=== PATIENT | female | born 1960 | race Caucasian/White ===

== ENCOUNTER 2018-02-21 04:38 | Inpatient (IN) | payer BC ==
[2018-02-21] MEDS ORDERED: Sodium Chloride 0.9% 1,000 ML IV ONE (05:14)
[2018-02-21] MEDS ORDERED: Ondansetron 4 MG Tab.DIS PO ONE (05:14)
[2018-02-21] MEDS ORDERED: Albuterol/Ipratropium 3.0-0.5 MG/3 ML Neb Soln NEB ONE (05:31)
[2018-02-21 05:50] LABS: CHLORIDE,CL 101 mmol/L (101-111); SODIUM,NA 136 mmol/L (135-145)
[2018-02-21] MEDS ORDERED: Iopamidol 755 Mg/ML 100 ML Bottle IVPUSH ONE (06:13)
--- NOTE | 2018-02-21 06:18 | EDM.PDOC ---
<Sparkle Vieira - Last Filed: 02/21/18 06:30> ED HPI GENERAL MEDICAL PROBLEM - General Chief Complaint: Abdominal Pain Stated Complaint: SOB AND VOMITING [id number] Time Seen by Provider: 02/21/18 05:10 Source of Information: Reports: Patient History Limitations: Reports: No Limitations - History of Present Illness INITIAL COMMENTS - FREE TEXT/NARRATIVE: ED with c/o vomiting past 2 days, unable to keep anything down, chills, feeling SOB tonight. brief few second anterior chest pain last yari. Also noted left knee red. 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 Abdomen Pain Score (Numeric/FACES): 8 - Related Data Allergies Allergy/AdvReac Type Severity Reaction Status Date / Time aspirin Allergy Nausea Verified 02/21/18 04:57 Home Meds: Home Meds Lisinopril 10 mg PO DAILY 02/21/18 [History] Vortioxetine Hydrobromide [Trintellix] 20 mg PO DAILY 02/21/18 [History] oxyCODONE HCl/Acetaminophen [Oxycodone-Acetaminophen 5-325] 1 tab PO ASDIRECTED 02/21/18 [History] rOPINIRole [Requip] 1 mg pe PO DAILY 02/21/18 [History] Past Medical History HEENT History: Reports: Impaired Vision Cardiovascular History: Reports: Hypertension Gastrointestinal History: Reports: GERD Musculoskeletal History: Reports: Back Pain, Chronic, Other (See Below) Other Musculoskeletal History: slipped disc. Hematologic History: Reports: Anemia, Blood Transfusion(s) - Past Surgical History Musculoskeletal Surgical History: Reports: Knee Replacement, Other (See Below) Other Musculoskeletal Surgeries/Procedures:: betsy knee replacement Social & Family History - Family History Cardiac: Reports: [place] Other Cardiac Family History: Father. - Tobacco Use Smoking Status *Q: Never Smoker Second Hand Smoke Exposure: No - Caffeine Use Caffeine Use: Reports: Energy Drinks Other Caffeine Use: 1/ daily - Recreational Drug Use Recreational Drug Use: No ED ROS GENERAL - Review of Systems Review Of Systems: See Below Constitutional: Reports: Chills, Decreased Appetite HEENT: Reports: Glasses Respiratory: Reports: Shortness of Breath, Wheezing, Cough. Denies: Pleuritic Chest Pain Cardiovascular: Reports: Orthopnea Endocrine: Reports: No Symptoms GI/Abdominal: Reports: Abdominal Pain (generalized), Decreased Appetite, Nausea , Vomiting : Reports: No Symptoms Musculoskeletal: Reports: Joint Pain (left knee) Skin: Reports: Erythema (left anterior knee and anterior lower leg) Neurological: Reports: Headache ED EXAM, GI/ABD - Physical Exam Exam: See Below Exam Limited By: No Limitations General Appearance: Alert, Anxious, Mild Distress Eyes: Bilateral: EOMI Ears: Normal External Exam Nose: Normal Inspection Throat/Mouth: Normal Inspection, Normal Lips Head: Atraumatic, Normocephalic Respiratory/Chest: Wheezing (upper, ), Other (tachypnea) Back Exam: Normal Inspection Extremities: Joint Swelling (left knee), Leg Pain, Increased Warmth Neurological: Alert, Oriented, Normal Cognition Psychiatric: Normal Affect, Anxious Skin Exam: Warm, Dry, Intact, No Rash Course - Vital Signs Last Recorded V/S: Last Vital Signs Temp 37.9 C 02/21/18 09:26 Pulse 92 02/21/18 09:26 Resp 20 02/21/18 09:26 BP 124/68 02/21/18 09:26 Pulse Ox 94 L 02/21/18 09:26 - Orders/Labs/Meds Orders: Active Orders 24 hr Category Date Time Status EKG 12 Lead [EKG Documentation Completion] [RC] URGENT Care 02/21/18 05:18 Active RT Aerosol Therapy [RC] ASDIRECTED Care 02/21/18 05:31 Active Venous Doppler Lwr Ext Lt [US] Urgent Exams 02/21/18 08:45 Ordered UA W/MICROSCOPIC [URIN] Stat Lab 02/21/18 05:12 Ordered Vancomycin 2 gm Med 02/21/18 09:31 Ordered Sodium Chloride 0.9% [Normal Saline] 500 ml IV ONETIME Medication Orders Vancomycin HCl 2 gm/ Sodium (Chloride) 500 mls @ 334 mls/hr IV ONETIME ONE Stop: 02/21/18 11:00 Labs: Laboratory Tests 02/21/18 02/21/18 02/21/18 Range/Units 05:24 05:24 05:24 WBC 18.0 H (5.0-10.0) 10^3/uL RBC 3.88 L (4.2-5.4) 10^6/uL Hgb 11.4 L (12.0-16.0) g/dL Hct 35.7 L (37.0-47.0) % MCV 92.0 (80-100) fL MCH 29.4 (27.0-34.0) pg MCHC 31.9 L (33.0-35.0) g/dL Plt Count 262 D (150-450) 10^3/uL Neut % (Auto) 87.6 H (42.2-75.2) % Lymph % (Auto) 6.4 L (20.5-50.1) % [place] % (Auto) 5.9 (2-8) % Eos % (Auto) 0.0 L (1.0-3.0) % Baso % (Auto) 0.1 (0.0-1.0) % D-Dimer, Quantitative 1310 H (0-400) ng/mL Sodium 136 (135-145) mmol/L Potassium 3.6 (3.6-5.0) mmol/L Chloride 101 (101-111) mmol/L Carbon Dioxide 24.0 (21.0-31.0) mmol/L Anion Gap 14.6 BUN 13 (7-18) mg/dL Creatinine 0.9 (0.6-1.3) mg/dL Est Cr Clr Drug Dosing 55.20 mL/min Estimated GFR (MDRD) > 60 BUN/Creatinine Ratio 14.44 Glucose 107 H (74-105) mg/dL Lactic Acid (0.5-2.2) mmol/L Uric Acid 6.2 (2.6-7.2) mg/dL Calcium 8.6 (8.4-10.2) mg/dl Total Bilirubin 0.8 (0.2-1.0) mg/dL AST 22 (10-42) IU/L ALT 21 (10-60) IU/L Alkaline Phosphatase 60 (42-121) IU/L CK-MB (CK-2) (0.4-4.7) ng/mL Troponin I < 0.02 (0.00-0.02) ng/ml B-Natriuretic Peptide 89 (0-100) pg/ml Total Protein 7.1 (6.7-8.2) g/dl Albumin 3.5 (3.2-5.5) g/dl Globulin 3.6 Albumin/Globulin Ratio 0.97 Amylase 7 L (28-100) U/L Lipase 12 L (22-51) U/L Urine Color (YELLOW) Urine Appearance (CLEAR) Urine pH (5.0-9.0) Ur Specific [place] (1.005-1.030) Urine Protein (NEGATIVE) Urine Glucose (UA) (NEGATIVE) Urine Ketones (NEGATIVE) Urine Occult Blood (NEGATIVE) Urine Nitrite (NEGATIVE) Urine Bilirubin (NEGATIVE) Urine Urobilinogen (0.2-1.0) mg/dL Ur Leukocyte Esterase (NEGATIVE) Urine RBC /HPF Urine WBC (0-5/HPF) /HPF Ur Epithelial Cells /HPF Urine Bacteria (0-FEW/HPF) /HPF 02/21/18 02/21/18 02/21/18 Range/Units 05:24 05:24 07:51 WBC (5.0-10.0) 10^3/uL RBC (4.2-5.4) 10^6/uL Hgb (12.0-16.0) g/dL Hct (37.0-47.0) % MCV (80-100) fL MCH (27.0-34.0) pg MCHC (33.0-35.0) g/dL Plt Count (150-450) 10^3/uL Neut % (Auto) (42.2-75.2) % Lymph % (Auto) (20.5-50.1) % [place] % (Auto) (2-8) % Eos % (Auto) (1.0-3.0) % Baso % (Auto) (0.0-1.0) % D-Dimer, Quantitative (0-400) ng/mL Sodium (135-145) mmol/L Potassium (3.6-5.0) mmol/L Chloride (101-111) mmol/L Carbon Dioxide (21.0-31.0) mmol/L Anion Gap BUN (7-18) mg/dL Creatinine (0.6-1.3) mg/dL Est Cr Clr Drug Dosing mL/min Estimated GFR (MDRD) BUN/Creatinine Ratio Glucose (74-105) mg/dL Lactic Acid 0.9 (0.5-2.2) mmol/L Uric Acid (2.6-7.2) mg/dL Calcium (8.4-10.2) mg/dl Total Bilirubin (0.2-1.0) mg/dL AST (10-42) IU/L ALT (10-60) IU/L Alkaline Phosphatase (42-121) IU/L CK-MB (CK-2) 1.00 (0.4-4.7) ng/mL Troponin I (0.00-0.02) ng/ml B-Natriuretic Peptide (0-100) pg/ml Total Protein (6.7-8.2) g/dl Albumin (3.2-5.5) g/dl Globulin Albumin/Globulin Ratio Amylase (28-100) U/L Lipase (22-51) U/L Urine Color Dark yellow (YELLOW) Urine Appearance Slightly cloudy (CLEAR) Urine pH 5.5 (5.0-9.0) Ur Specific [place] 1.015 (1.005-1.030) Urine Protein 100 H (NEGATIVE) Urine Glucose (UA) Negative (NEGATIVE) Urine Ketones 40 H (NEGATIVE) Urine Occult Blood Moderate H (NEGATIVE) Urine Nitrite Negative (NEGATIVE) Urine Bilirubin Small H (NEGATIVE) Urine Urobilinogen 1.0 (0.2-1.0) mg/dL Ur Leukocyte Esterase Negative (NEGATIVE) Urine RBC 0-5 /HPF Urine WBC 0-5 (0-5/HPF) /HPF Ur Epithelial Cells Moderate H /HPF Urine Bacteria Many H (0-FEW/HPF) /HPF Meds: Medications Generic Name Dose Route Start Last Admin Trade Name Freq PRN Reason Stop Dose Admin Vancomycin HCl 2 gm/ Sodium 500 mls @ 334 mls/hr 02/21/18 09:31 Chloride IV 02/21/18 11:00 ONETIME ONE Discontinued Medications Generic Name Dose Route Start Last Admin Trade Name Freq PRN Reason Stop Dose Admin Albuterol/Ipratropium 3 ml 02/21/18 05:31 02/21/18 05:38 Duoneb 3.0-0.5 Mg/3 Ml NEB 02/21/18 05:32 3 ml ONETIME ONE Administration Sodium Chloride 1,000 mls @ 999 mls/hr 02/21/18 05:14 02/21/18 05:28 Normal Saline IV 02/21/18 06:14 999 mls/hr .BOLUS ONE Administration Iopamidol 100 ml 02/21/18 06:13 02/21/18 07:59 [id number] (76%) IVPUSH 02/21/18 06:14 83 ml ONETIME ONE Administration Morphine Sulfate 4 mg 02/21/18 06:23 02/21/18 06:28 Morphine IVPUSH 02/21/18 06:24 4 mg ONETIME ONE Administration Ondansetron HCl 4 mg 02/21/18 05:14 02/21/18 05:30 Zofran Odt PO 02/21/18 05:15 4 mg ONETIME ONE Administration Pantoprazole Sodium 80 mg 02/21/18 06:24 02/21/18 06:36 Protonix Iv IVPUSH 02/21/18 06:25 80 mg .BOLUS ONE Administration Departure - Departure Disposition: Admitted As Inpatient 67 Clinical Impression: Cellulitis of left lower extremity - Discharge Information Care Plan Goals: Discussed the patient's history, examination, lab, CT and ultrasound results with Dr. Ambrocio. Dr. Ambrocio accepted the patient for continued evaluation and further management as an inpatient at [facility]. - My Orders Last 24 Hours: My Active Orders 02/21/18 08:45 Venous Doppler Lwr Ext Lt [US] Urgent 02/21/18 09:31 Vancomycin 2 gm Sodium Chloride 0.9% [Normal Saline] 500 ml IV ONETIME - Assessment/Plan Last 24 Hours: My Active Orders 02/21/18 08:45 Venous Doppler Lwr Ext Lt [US] Urgent 02/21/18 09:31 Vancomycin 2 gm Sodium Chloride 0.9% [Normal Saline] 500 ml IV ONETIME <Bairon Morelos - Last Filed: 02/21/18 09:33> Departure - Departure Time of Disposition: 09:31 Condition: Fair
[2018-02-21] MEDS ORDERED: Morphine 10 MG/ML Syringe IVPUSH ONE (06:23)
[2018-02-21] MEDS ORDERED: Pantoprazole 40 MG Vial IVPUSH ONE (06:24)
[2018-02-21] MEDS ORDERED: Vancomycin 2 GM in Sodium Chloride 0.9% 500 ML IV ONE (09:31)
--- NOTE | 2018-02-21 09:35 | US ---
Clinical history: 57-year-old 300 pound female with swollen, red, left leg (superficial varicosities) . Rule out DVT. Interpretation: Superficial calf varicosities confirmed. No sign of intraluminal echogenic thrombus and normal compressibility deep veins of the left groin, t high, knee and calf. Normal augmentation vascular waveform popliteal vein behind the left knee and pr oximally in the femoral veins of the left thigh and groin. No Henry's cyst identified in the popliteal fossa behind the left knee. CONCLUSION: No DVT left lower extremity.
[2018-02-21] MEDS ORDERED: METHOCARBAMOL 500 MG PO PRN (11:57)
[2018-02-21] MEDS ORDERED: Acetaminophen/oxyCODONE 325-5 MG Tab PO PRN (11:57)
[2018-02-21] MEDS ORDERED: Ondansetron 4 MG/2 ML SDV IVPUSH PRN (12:05)
[2018-02-21] MEDS ORDERED: Morphine 2 MG/ML Syringe IVPUSH PRN (12:05)
[2018-02-21] MEDS ORDERED: Zolpidem 5 MG Tab PO PRN (12:05)
--- NOTE | 2018-02-21 12:19 | PCM.HP ---
H&P History of Present Illness - General Date of Service: 02/21/18 Admit Problem/Dx: Admission Diagnosis/Problem Admission Diagnosis/Problem Cellulitis Source of Information: Patient - History of Present Illness Initial Comments - Free Text/Narative: 57-year-old lady who presented with the nausea, vomiting. Noted to have left lower extremity redness. The nausea and vomiting symptoms started about 34 days prior to admission. Was unable to eat. Has been getting weaker and tired. Has no associated abdominal pain, no diarrhea. Abdomen Pain Score (Numeric/FACES): 8 - Related Data Allergies/Adverse Reactions: Allergies Allergy/AdvReac Type Severity Reaction Status Date / Time aspirin Allergy Mild Nausea Verified 02/21/18 11:22 Home Medications: Home Meds Lisinopril 10 mg PO DAILY 02/21/18 [History] Methocarbamol [Robaxin] 500 mg PO Q4H PRN 02/21/18 [History] Vortioxetine Hydrobromide [Trintellix] 20 mg PO DAILY 02/21/18 [History] cycloSPORINE [Restasis] 1 each OP BID 02/21/18 [History] oxyCODONE HCl/Acetaminophen [Oxycodone-Acetaminophen 5-325] 1 tab PO BID PRN [History] rOPINIRole [Requip] 1 mg PO BEDTIME 02/21/18 [History] Past Medical History HEENT History: Reports: Impaired Vision Cardiovascular History: Reports: Hypertension Gastrointestinal History: Reports: GERD Musculoskeletal History: Reports: Back Pain, Chronic, Other (See Below) Other Musculoskeletal History: slipped disc. Endocrine/Metabolic History: Reports: Obesity/BMI 30+ Hematologic History: Reports: Anemia, Blood Transfusion(s), Other (See Below) Other Hematologic History: with knee surgeries - Infectious Disease History Infectious Disease History: Reports: None - Past Surgical History HEENT Surgical History: Reports: None Cardiovascular Surgical History: Reports: None GI Surgical History: Reports: None Endocrine Surgical History: Reports: None Musculoskeletal Surgical History: Reports: Knee Replacement, Other (See Below) Other Musculoskeletal Surgeries/Procedures:: betsy knee replacement Social & Family History - Family History Family Medical History: Noncontributory Cardiac: Reports: [place] Other Cardiac Family History: Father. - Tobacco Use Smoking Status *Q: Never Smoker Second Hand Smoke Exposure: Yes - Caffeine Use Caffeine Use: Reports: Coffee Other Caffeine Use: 1/ daily - Recreational Drug Use Recreational Drug Use: No H&P Review of Systems - Review of Systems: Review Of Systems: See Below General: Reports: Malaise, Weakness, Fatigue. Denies: Fever Pulmonary: Denies: Shortness of Breath Cardiovascular: Denies: Chest Pain, Dyspnea on Exertion, Edema Gastrointestinal: Reports: Nausea, Vomiting. Denies: Abdominal Pain Skin: Reports: Other (Left leg redness). Denies: Jaundice Psychiatric: Reports: Depression Exam - Exam Exam: See Below - Vital Signs Vital Signs: Last Vital Signs Temp 37.9 C 02/21/18 09:26 Pulse 92 02/21/18 09:26 Resp 20 02/21/18 09:26 BP 124/68 02/21/18 09:26 Pulse Ox 94 L 02/21/18 09:26 Weight: 140.886 kg - Exam General: Alert, Oriented Neck: Supple Lungs: Clear to Auscultation, Normal Respiratory Effort Cardiovascular: Regular Rate, Regular Rhythm GI/Abdominal Exam: Normal Bowel Sounds, Soft, Non-Tender Extremities: No Pedal Edema Skin: Other (Left lower extremity erythema) Neuro Extensive - Mental Status: Alert, Oriented x3, Normal Mood/Affect Psychiatric: Alert, Normal Affect, Normal Mood - Patient Data Lab Results Last 24 hrs: Laboratory Results - last 24 hr 02/21/18 02/21/18 02/21/18 Range/Units 05:24 05:24 05:24 WBC 18.0 H (5.0-10.0) 10^3/uL RBC 3.88 L (4.2-5.4) 10^6/uL Hgb 11.4 L (12.0-16.0) g/dL Hct 35.7 L (37.0-47.0) % MCV 92.0 (80-100) fL MCH 29.4 (27.0-34.0) pg MCHC 31.9 L (33.0-35.0) g/dL Plt Count 262 D (150-450) 10^3/uL Neut % (Auto) 87.6 H (42.2-75.2) % Lymph % (Auto) 6.4 L (20.5-50.1) % [place] % (Auto) 5.9 (2-8) % Eos % (Auto) 0.0 L (1.0-3.0) % Baso % (Auto) 0.1 (0.0-1.0) % D-Dimer, Quantitative 1310 H (0-400) ng/mL Sodium 136 (135-145) mmol/L Potassium 3.6 (3.6-5.0) mmol/L Chloride 101 (101-111) mmol/L Carbon Dioxide 24.0 (21.0-31.0) mmol/L Anion Gap 14.6 BUN 13 (7-18) mg/dL Creatinine 0.9 (0.6-1.3) mg/dL Est Cr Clr Drug Dosing 55.20 mL/min Estimated GFR (MDRD) > 60 BUN/Creatinine Ratio 14.44 Glucose 107 H (74-105) mg/dL Lactic Acid (0.5-2.2) mmol/L Uric Acid 6.2 (2.6-7.2) mg/dL Calcium 8.6 (8.4-10.2) mg/dl Total Bilirubin 0.8 (0.2-1.0) mg/dL AST 22 (10-42) IU/L ALT 21 (10-60) IU/L Alkaline Phosphatase 60 (42-121) IU/L CK-MB (CK-2) (0.4-4.7) ng/mL Troponin I < 0.02 (0.00-0.02) ng/ml B-Natriuretic Peptide 89 (0-100) pg/ml Total Protein 7.1 (6.7-8.2) g/dl Albumin 3.5 (3.2-5.5) g/dl Globulin 3.6 Albumin/Globulin Ratio 0.97 Amylase 7 L (28-100) U/L Lipase 12 L (22-51) U/L Urine Color (YELLOW) Urine Appearance (CLEAR) Urine pH (5.0-9.0) Ur Specific [place] (1.005-1.030) Urine Protein (NEGATIVE) Urine Glucose (UA) (NEGATIVE) Urine Ketones (NEGATIVE) Urine Occult Blood (NEGATIVE) Urine Nitrite (NEGATIVE) Urine Bilirubin (NEGATIVE) Urine Urobilinogen (0.2-1.0) mg/dL Ur Leukocyte Esterase (NEGATIVE) Urine RBC /HPF Urine WBC (0-5/HPF) /HPF Ur Epithelial Cells /HPF Urine Bacteria (0-FEW/HPF) /HPF 02/21/18 02/21/18 02/21/18 Range/Units 05:24 05:24 07:51 WBC (5.0-10.0) 10^3/uL RBC (4.2-5.4) 10^6/uL Hgb (12.0-16.0) g/dL Hct (37.0-47.0) % MCV (80-100) fL MCH (27.0-34.0) pg MCHC (33.0-35.0) g/dL Plt Count (150-450) 10^3/uL Neut % (Auto) (42.2-75.2) % Lymph % (Auto) (20.5-50.1) % [place] % (Auto) (2-8) % Eos % (Auto) (1.0-3.0) % Baso % (Auto) (0.0-1.0) % D-Dimer, Quantitative (0-400) ng/mL Sodium (135-145) mmol/L Potassium (3.6-5.0) mmol/L Chloride (101-111) mmol/L Carbon Dioxide (21.0-31.0) mmol/L Anion Gap BUN (7-18) mg/dL Creatinine (0.6-1.3) mg/dL Est Cr Clr Drug Dosing mL/min Estimated GFR (MDRD) BUN/Creatinine Ratio Glucose (74-105) mg/dL Lactic Acid 0.9 (0.5-2.2) mmol/L Uric Acid (2.6-7.2) mg/dL Calcium (8.4-10.2) mg/dl Total Bilirubin (0.2-1.0) mg/dL AST (10-42) IU/L ALT (10-60) IU/L Alkaline Phosphatase (42-121) IU/L CK-MB (CK-2) 1.00 (0.4-4.7) ng/mL Troponin I (0.00-0.02) ng/ml B-Natriuretic Peptide (0-100) pg/ml Total Protein (6.7-8.2) g/dl Albumin (3.2-5.5) g/dl Globulin Albumin/Globulin Ratio Amylase (28-100) U/L Lipase (22-51) U/L Urine Color Dark yellow (YELLOW) Urine Appearance Slightly cloudy (CLEAR) Urine pH 5.5 (5.0-9.0) Ur Specific [place] 1.015 (1.005-1.030) Urine Protein 100 H (NEGATIVE) Urine Glucose (UA) Negative (NEGATIVE) Urine Ketones 40 H (NEGATIVE) Urine Occult Blood Moderate H (NEGATIVE) Urine Nitrite Negative (NEGATIVE) Urine Bilirubin Small H (NEGATIVE) Urine Urobilinogen 1.0 (0.2-1.0) mg/dL Ur Leukocyte Esterase Negative (NEGATIVE) Urine RBC 0-5 /HPF Urine WBC 0-5 (0-5/HPF) /HPF Ur Epithelial Cells Moderate H /HPF Urine Bacteria Many H (0-FEW/HPF) /HPF Result Diagrams: 02/21/18 05:24 02/21/18 05:24 Juan M Results Last 24 hrs: Microbiology 02/21/18 05:24 Influenza Type A Antigen Screen - Final Nasal, Right NEGATIVE INFLUENZA A VIRUS AG Influenza Type B Antigen Screen - Final NEGATIVE INFLUENZA B VIRUS AG - Problem List (1) Cellulitis of left lower extremity SNOMED Code(s): 812673858 ICD Code: L03.116 - CELLULITIS OF LEFT LOWER LIMB Status: Acute Current Visit: No Problem List Initiated/Reviewed/Updated: Yes Orders Last 24hrs: Active Orders 24 hr Category Date Time Status Patient Status [ADT] Routine ADT 02/21/18 12:00 Ordered EKG 12 Lead [EKG Documentation Completion] [RC] URGENT Care 02/21/18 05:18 Active Oxygen Therapy [RC] PRN Care 02/21/18 12:00 Ordered Peripheral IV Care [RC] . DIRECTED Care 02/21/18 12:10 Ordered RT Aerosol Therapy [RC] ASDIRECTED Care 02/21/18 05:31 Active Up With Assistance [RC] ASDIRECTED Care 02/21/18 12:00 Ordered VTE/DVT Education [RC] PER UNIT ROUTINE Care 02/21/18 12:00 Ordered Vital Signs [RC] Q4H Care 02/21/18 12:00 Ordered Regular Diet [DIET] Diet 02/21/18 Lunch Ordered BASIC METABOLIC PANEL,BMP [CHEM] AM Lab 02/22/18 05:11 Ordered CBC WITH AUTO DIFF [HEME] AM Lab 02/22/18 05:11 Ordered CULTURE BLOOD [BC] Stat Lab 02/21/18 11:59 Ordered CULTURE BLOOD [BC] Stat Lab 02/21/18 11:59 Ordered UA W/MICROSCOPIC [URIN] Stat Lab 02/21/18 07:51 Ordered VANCOMYCIN TROUGH [CHEM] Timed Lab 02/22/18 09:30 Ordered Acetaminophen [Tylenol] Med 02/21/18 12:05 Ordered 650 mg PO Q4H PRN Acetaminophen/oxyCODONE [Percocet 325-5 MG] Med 02/21/18 11:57 Ordered 1 tab PO Q6H PRN Heparin Sodium Med 02/21/18 14:00 Ordered 5,000 units SUBCUT Q8HR Lisinopril [Prinivil] Med 02/22/18 09:00 Ordered 10 mg PO DAILY Methocarbamol [Robaxin] Med 02/21/18 11:57 Ordered 500 mg PO Q4H PRN Morphine Med 02/21/18 12:05 Ordered 2 mg IVPUSH Q2H PRN Ondansetron [Zofran ODT] Med 02/21/18 12:05 Ordered 4 mg PO Q6H PRN Ondansetron [Zofran] Med 02/21/18 12:05 Ordered 4 mg IVPUSH Q6H PRN Pantoprazole [ProTONIX] Med 02/21/18 17:00 Ordered 40 mg PO BIDAC Piperacillin/Tazobactam [Zosyn] 3.375 gm Med 02/21/18 12:00 Ordered Sodium Chloride 0.9% [Normal Saline] 100 ml IV Q6H Sodium Chloride 0.9% [Saline Flush] Med 02/21/18 12:05 Ordered 10 ml FLUSH ASDIRECTED PRN Vancomycin 1.25 gm Med 02/21/18 18:00 Active Sodium Chloride 0.9% [Normal Saline] 250 ml IV Q8H Vancomycin Pharmacy to Dose [Pharmacy to Dose - Med 02/21/18 12:00 Ordered Vancomycin] 1 dose .XX ASDIRECTED Vortioxetine Hydrobromide [Trintellix] Med 02/22/18 09:00 Ordered 20 mg PO DAILY Zolpidem [Ambien] Med 02/21/18 12:05 Ordered 5 mg PO BEDTIME PRN cycloSPORINE [Restasis] Med 02/21/18 21:00 Ordered 1 each EYEBOTH BID rOPINIRole [Requip] Med 02/21/18 21:00 Ordered 1 mg PO BEDTIME Antiembolic Hose [OM.PC] Per Unit Routine Oth 02/21/18 12:08 Ordered Blood Culture x2 Reflex Set [OM.PC] Stat Oth 02/21/18 11:59 Ordered Peripheral IV Insertion Adult [OM.PC] Routine Oth 02/21/18 12:05 Ordered Resuscitation Status Routine Resus Stat 02/21/18 12:00 Ordered Medication Orders Acetaminophen (Tylenol) 650 mg PO Q4H PRN PRN Reason: Pain (Mild 1-3)/fever Cyclosporine (Restasis) 1 each EYEBOTH BID EYAL Heparin Sodium (Porcine) (Heparin Sodium) 5,000 units SUBCUT Q8HR EYAL Piperacillin Sod/Tazobactam (Sod 3.375 gm/ Sodium Chloride) 100 mls @ 200 mls/ hr IV Q6H EYAL Vancomycin HCl 1.25 gm/ Sodium (Chloride) 250 mls @ 166.667 mls/hr IV Q8H EYAL Lisinopril (Prinivil) 10 mg PO DAILY EYAL Morphine Sulfate (Morphine) 2 mg IVPUSH Q2H PRN PRN Reason: Pain (severe 7-10) Non-Formulary Medication (Methocarbamol [Robaxin]) 500 mg PO Q4H PRN PRN Reason: Pain Non-Formulary Medication (Vortioxetine Hydrobromide [Trintellix]) 20 mg PO DAILY EYAL Ondansetron HCl (Zofran Odt) 4 mg PO Q6H PRN PRN Reason: nausea, able to take PO Ondansetron HCl (Zofran) 4 mg IVPUSH Q6H PRN PRN Reason: Nausea/Vomiting Oxycodone/Acetaminophen (Percocet 325-5 Mg) 1 tab PO Q6H PRN PRN Reason: Pain Pantoprazole Sodium (Protonix) 40 mg PO BIDAC EYAL Ropinirole HCl (Requip) 1 mg PO BEDTIME EYAL Sodium Chloride (Saline Flush) 10 ml FLUSH ASDIRECTED PRN PRN Reason: Keep Vein Open Vancomycin HCl (Pharmacy To Dose - Vancomycin) 1 dose .XX ASDIRECTED EYAL Zolpidem Tartrate (Ambien) 5 mg PO BEDTIME PRN PRN Reason: Sleep Assessment/Plan Comment:: 57-year-old lady who presented with the nausea, vomiting. Noted to have left lower extremity redness. Cellulitis of the left lower extremity Will obtain Blood culture Start treatment empirically with Zosyn and vancomycin Nausea, vomiting Might Relate to infection, possible gastroenteritis Will give IV fluids, antiemetics Chronic pain Use oxycodone by mouth, morphine IV when necessary Hypertension Treat with lisinopril DVT prophylaxis will be with subcutaneous heparin
[2018-02-21] MEDS: Acetaminophen 325 MG Tab PO PRN (13:08)
[2018-02-21] MEDS: Piperacillin/Tazobactam 3.375 GM in Sodium Chloride 0.9% 100 ML IV SCH ×2 (13:40→17:55)
[2018-02-21] MEDS: Heparin Sodium 5,000 Units/ML Vial SUBCUT SCH ×2 (14:21→21:23)
[2018-02-21] MEDS: Pantoprazole 40 MG Tab.CR PO SCH (17:02)
[2018-02-21] MEDS: Ibuprofen 400 MG Tab PO PRN (19:20)
[2018-02-21] MEDS: rOPINIRole 2 MG Tab PO SCH (21:21)
[2018-02-21] MEDS: cycloSPORINE Ophth Drops U/D Box of 30 EYEBOTH SCH (21:23)
[2018-02-22] MEDS: Sodium Chloride 0.9% 10 ML Syringe FLUSH PRN ×3 (00:11→06:18)
[2018-02-22] MEDS: Piperacillin/Tazobactam 3.375 GM in Sodium Chloride 0.9% 100 ML IV SCH ×5 (00:11→23:57)
[2018-02-22] MEDS: Acetaminophen 325 MG Tab PO PRN (02:37)
[2018-02-22] MEDS: Heparin Sodium 5,000 Units/ML Vial SUBCUT SCH ×3 (06:22→21:46)
[2018-02-22] MEDS: Pantoprazole 40 MG Tab.CR PO SCH ×2 (06:26→17:26)
[2018-02-22] MEDS: Ibuprofen 400 MG Tab PO PRN ×2 (09:29→17:26)
[2018-02-22] MEDS: cycloSPORINE Ophth Drops U/D Box of 30 EYEBOTH SCH ×2 (09:30→20:37)
[2018-02-22] MEDS: Lisinopril 10 MG Tab PO SCH (09:30)
[2018-02-22 10:38] LABS: CHLORIDE,CL 103 mmol/L (101-111); SODIUM,NA 136 mmol/L (135-145)
--- NOTE | 2018-02-22 10:38 | PCM.PN ---
- General Info Date of Service: 02/22/18 Admission Dx/Problem (Free Text): Admission Diagnosis/Problem Admission Diagnosis/Problem Cellulitis Subjective Update: The patient is a 57-year-old lady who presented with nausea vomiting, weakness. Noted to have left lower extremity cellulitis. Since admission the nausea has improved, has been able to eat toast and breakfast, no associated vomiting. Until to have moderate fever, associated with left lower extremity redness. No chest pain, no shortness of breath. No diarrhea, no abdominal pain. - Review of Systems General: Reports: Fever, Weakness Pulmonary: Denies: Shortness of Breath Cardiovascular: Denies: Chest Pain Gastrointestinal: Denies: Abdominal Pain Neurological: Denies: Confusion - Patient Data Vitals - Most Recent: Last Vital Signs Temp 38.0 C 02/22/18 09:29 Pulse 93 02/22/18 07:00 Resp 20 02/22/18 07:00 BP 110/46 L 02/22/18 09:30 Pulse Ox 96 02/22/18 07:00 Weight - Most Recent: 140.886 kg I&O - Last 24 Hours: Intake & Output 02/21/18 02/22/18 02/22/18 22:59 06:59 14:59 Intake Total 704 854 Output Total 100 300 Balance 604 554 Lab Results Last 24 Hours: Laboratory Results - last 24 hr 02/22/18 02/22/18 Range/Units 10:08 10:08 WBC 12.3 H (5.0-10.0) 10^3/uL RBC 3.50 L (4.2-5.4) 10^6/uL Hgb 10.4 L (12.0-16.0) g/dL Hct 32.6 L (37.0-47.0) % MCV 93.1 (80-100) fL MCH 29.7 (27.0-34.0) pg MCHC 31.9 L (33.0-35.0) g/dL Plt Count 218 (150-450) 10^3/uL Neut % (Auto) 86.9 H (42.2-75.2) % Lymph % (Auto) 4.8 L (20.5-50.1) % Rogers % (Auto) 6.7 (2-8) % Eos % (Auto) 1.4 (1.0-3.0) % Baso % (Auto) 0.2 (0.0-1.0) % Vancomycin Trough 25.4 H (10-15) ug/ml Juan M Results Last 24 Hours: Microbiology 02/21/18 05:24 Influenza Type A Antigen Screen - Final Nasal, Right NEGATIVE INFLUENZA A VIRUS AG Influenza Type B Antigen Screen - Final NEGATIVE INFLUENZA B VIRUS AG Med Orders - Current: Current Medications Acetaminophen (Tylenol) 650 mg PO Q4H PRN PRN Reason: Pain (Mild 1-3)/fever Last Admin: 02/22/18 02:37 Dose: 650 mg Cyclosporine (Restasis) 1 each EYEBOTH BID [facility] Last Admin: 02/22/18 09:30 Dose: 1 drop Heparin Sodium (Porcine) (Heparin Sodium) 5,000 units SUBCUT Q8HR [facility] Last Admin: 02/22/18 06:22 Dose: 5,000 units Piperacillin Sod/Tazobactam (Sod 3.375 gm/ Sodium Chloride) 100 mls @ 200 mls/ hr IV Q6H [facility] Last Infusion: 02/22/18 07:49 Dose: Infused Vancomycin HCl 1.25 gm/ Sodium (Chloride) 250 mls @ 166.667 mls/hr IV Q8H [facility] Last Admin: 02/22/18 02:23 Dose: 166.667 mls/hr Ibuprofen (Motrin) 400 mg PO Q8H PRN PRN Reason: pain/ fever Last Admin: 02/22/18 09:29 Dose: 400 mg Lisinopril (Prinivil) 10 mg PO DAILY [facility] Last Admin: 02/22/18 09:30 Dose: 10 mg Morphine Sulfate (Morphine) 2 mg IVPUSH Q2H PRN PRN Reason: Pain (severe 7-10) Non-Formulary Medication (Methocarbamol [Robaxin]) 500 mg PO Q4H PRN PRN Reason: Pain Non-Formulary Medication (Vortioxetine Hydrobromide [Trintellix]) 20 mg PO DAILY [facility] Ondansetron HCl (Zofran Odt) 4 mg PO Q6H PRN PRN Reason: nausea, able to take PO Ondansetron HCl (Zofran) 4 mg IVPUSH Q6H PRN PRN Reason: Nausea/Vomiting Oxycodone/Acetaminophen (Percocet 325-5 Mg) 1 tab PO Q6H PRN PRN Reason: Pain Pantoprazole Sodium (Protonix) 40 mg PO BIDAC [facility] Last Admin: 02/22/18 06:26 Dose: 40 mg Ropinirole HCl (Requip) 1 mg PO BEDTIME [facility] Last Admin: 02/21/18 21:21 Dose: 1 mg Sodium Chloride (Saline Flush) 10 ml FLUSH ASDIRECTED PRN PRN Reason: Keep Vein Open Last Admin: 02/22/18 06:18 Dose: 10 ml Vancomycin HCl (Pharmacy To Dose - Vancomycin) 1 dose .XX ASDIRECTED [facility] Zolpidem Tartrate (Ambien) 5 mg PO BEDTIME PRN PRN Reason: Sleep Discontinued Medications Albuterol/Ipratropium (Duoneb 3.0-0.5 Mg/3 Ml) 3 ml NEB ONETIME ONE Stop: 02/21/18 05:32 Last Admin: 02/21/18 05:38 Dose: 3 ml Sodium Chloride (Normal Saline) 1,000 mls @ 999 mls/hr IV .BOLUS ONE Stop: 02/21/18 06:14 Last Admin: 02/21/18 05:28 Dose: 999 mls/hr Vancomycin HCl 2 gm/ Sodium (Chloride) 500 mls @ 334 mls/hr IV ONETIME ONE Stop: 02/21/18 11:00 Last Admin: 02/21/18 09:49 Dose: 208 mls/hr Iopamidol (Isovue-370 (76%)) 100 ml IVPUSH ONETIME ONE Stop: 02/21/18 06:14 Last Admin: 02/21/18 07:59 Dose: 83 ml Morphine Sulfate (Morphine) 4 mg IVPUSH ONETIME ONE Stop: 02/21/18 06:24 Last Admin: 02/21/18 06:28 Dose: 4 mg Ondansetron HCl (Zofran Odt) 4 mg PO ONETIME ONE Stop: 02/21/18 05:15 Last Admin: 02/21/18 05:30 Dose: 4 mg Pantoprazole Sodium (Protonix Iv) 80 mg IVPUSH .BOLUS ONE Stop: 02/21/18 06:25 Last Admin: 02/21/18 06:36 Dose: 80 mg - Exam General: Alert, Oriented Neck: Supple Lungs: Clear to Auscultation, Normal Respiratory Effort Cardiovascular: Regular Rate, Regular Rhythm GI/Abdominal Exam: Normal Bowel Sounds, Soft, Non-Tender, Other (obese) Extremities: Pedal Edema Skin: Warm, Other (Left lower extremity erythema, tenderness to touch) - Problem List & Annotations (1) Cellulitis of left lower extremity SNOMED Code(s): 032395158 Code(s): L03.116 - CELLULITIS OF LEFT LOWER LIMB Status: Acute Current Visit: No - Problem List Review Problem List Initiated/Reviewed/Updated: Yes - My Orders Last 24 Hours: My Active Orders 02/21/18 11:57 Acetaminophen/oxyCODONE [Percocet 325-5 MG] 1 tab PO Q6H PRN Methocarbamol [Robaxin] 500 mg PO Q4H PRN 02/21/18 11:59 Blood Culture x2 Reflex Set [OM.PC] Stat 02/21/18 12:00 Patient Status [ADT] Routine Oxygen Therapy [RC] PRN Up With Assistance [RC] ASDIRECTED Vital Signs [RC] 07,11,15,19,23,03 Piperacillin/Tazobactam [Zosyn] 3.375 gm Sodium Chloride 0.9% [Normal Saline] 100 ml IV Q6H Vancomycin Pharmacy to Dose [Pharmacy to Dose - Vancomycin] 1 dose .XX ASDIRECTED Resuscitation Status Routine 02/21/18 12:05 Acetaminophen [Tylenol] 650 mg PO Q4H PRN Morphine 2 mg IVPUSH Q2H PRN Ondansetron [Zofran ODT] 4 mg PO Q6H PRN Ondansetron [Zofran] 4 mg IVPUSH Q6H PRN Sodium Chloride 0.9% [Saline Flush] 10 ml FLUSH ASDIRECTED PRN Zolpidem [Ambien] 5 mg PO BEDTIME PRN Peripheral IV Insertion Adult [OM.PC] Routine 02/21/18 12:08 Antiembolic Hose [OM.PC] Per Unit Routine 02/21/18 12:10 Peripheral IV Care [RC] ,02/21/18 12:46 CULTURE BLOOD [BC] Stat 02/21/18 12:52 CULTURE BLOOD [BC] Stat 02/21/18 14:00 Heparin Sodium 5,000 units SUBCUT Q8HR 02/21/18 14:30 Ibuprofen [Motrin] 400 mg PO Q8H PRN 02/21/18 17:00 Pantoprazole [ProTONIX] 40 mg PO BIDAC 02/21/18 18:00 Vancomycin 1.25 gm Sodium Chloride 0.9% [Normal Saline] 250 ml IV Q8H 02/21/18 21:00 cycloSPORINE [Restasis] 1 each EYEBOTH BID rOPINIRole [Requip] 1 mg PO BEDTIME 02/21/18 Lunch Regular Diet [DIET] 02/22/18 09:00 Lisinopril [Prinivil] 10 mg PO DAILY Vortioxetine Hydrobromide [Trintellix] 20 mg PO DAILY 02/22/18 10:08 BASIC METABOLIC PANEL,BMP [CHEM] AM - Plan Plan:: 57-year-old lady who presented with the nausea, vomiting. Noted to have left lower extremity redness. Cellulitis of the left lower extremity Blood culture pending continue treatment empirically with Zosyn and vancomycin Nausea, vomiting Might Relate to infection, possible gastroenteritis appears improving advance diet as tolerated Chronic pain Use oxycodone by mouth, morphine IV when necessary Hypertension Treat with lisinopril DVT prophylaxis will be with subcutaneous heparin
[2018-02-22] MEDS: VORTIOXETINE HYDROBROMIDE 20 MG PO SCH (15:24)
[2018-02-22] MEDS ORDERED: METHOCARBAMOL 500 MG PO PRN (16:45)
[2018-02-22] MEDS: Ondansetron 4 MG Tab.DIS PO PRN (17:26)
[2018-02-22] MEDS ORDERED: Potassium Chloride 10 MEQ Tab.ER PO ONE (17:54)
[2018-02-22] MEDS: rOPINIRole 2 MG Tab PO SCH (20:38)
[2018-02-22] MEDS: DICLOFENAC SODIUM 75 MG PO SCH (20:39)
[2018-02-23] MEDS: Pantoprazole 40 MG Tab.CR PO SCH ×2 (05:44→17:20)
[2018-02-23] MEDS: Heparin Sodium 5,000 Units/ML Vial SUBCUT SCH ×3 (05:44→21:45)
[2018-02-23] MEDS: Piperacillin/Tazobactam 3.375 GM in Sodium Chloride 0.9% 100 ML IV SCH ×4 (05:46→23:43)
[2018-02-23] MEDS: Ibuprofen 400 MG Tab PO PRN ×2 (06:12→17:20)
[2018-02-23] MEDS: VORTIOXETINE HYDROBROMIDE 20 MG PO SCH (09:06)
[2018-02-23] MEDS: cycloSPORINE Ophth Drops U/D Box of 30 EYEBOTH SCH ×2 (09:07→20:27)
[2018-02-23] MEDS: Lisinopril 10 MG Tab PO SCH (09:07)
[2018-02-23] MEDS: DICLOFENAC SODIUM 75 MG PO SCH ×2 (09:09→20:28)
--- NOTE | 2018-02-23 10:02 | PCM.PN ---
- General Info Date of Service: 02/23/18 Admission Dx/Problem (Free Text): Admission Diagnosis/Problem Admission Diagnosis/Problem Cellulitis Subjective Update: The patient is a 57-year-old lady who presented with nausea vomiting, weakness. Noted to have left lower extremity cellulitis. Since admission the nausea has resolved, has been able to eat, no associated vomiting. Until to have moderate fever, associated with left lower extremity redness. No chest pain, no shortness of breath. No diarrhea, no abdominal pain. - Review of Systems General: Reports: Weakness. Denies: Fever Pulmonary: Denies: Shortness of Breath Cardiovascular: Denies: Chest Pain Gastrointestinal: Denies: Abdominal Pain Musculoskeletal: Reports: Leg Pain (Improved) - Patient Data Vitals - Most Recent: Last Vital Signs Temp 36.4 C 02/23/18 07:00 Pulse 78 02/23/18 07:00 Resp 20 02/23/18 07:00 BP 117/66 02/23/18 09:07 Pulse Ox 95 02/23/18 07:00 Weight - Most Recent: 140.886 kg I&O - Last 24 Hours: Intake & Output 02/22/18 02/23/18 02/23/18 22:59 06:59 14:59 Intake Total 254 210 234 Output Total 200 Balance 254 10 234 Lab Results Last 24 Hours: Laboratory Results - last 24 hr 02/22/18 02/22/18 02/22/18 Range/Units 10:08 10:08 10:08 WBC 12.3 H (5.0-10.0) 10^3/uL RBC 3.50 L (4.2-5.4) 10^6/uL Hgb 10.4 L (12.0-16.0) g/dL Hct 32.6 L (37.0-47.0) % MCV 93.1 (80-100) fL MCH 29.7 (27.0-34.0) pg MCHC 31.9 L (33.0-35.0) g/dL Plt Count 218 (150-450) 10^3/uL Neut % (Auto) 86.9 H (42.2-75.2) % Lymph % (Auto) 4.8 L (20.5-50.1) % Stevens % (Auto) 6.7 (2-8) % Eos % (Auto) 1.4 (1.0-3.0) % Baso % (Auto) 0.2 (0.0-1.0) % Sodium 136 (135-145) mmol/L Potassium 3.2 L (3.6-5.0) mmol/L Chloride 103 (101-111) mmol/L Carbon Dioxide 23.0 (21.0-31.0) mmol/L Anion Gap 13.2 BUN 15 (7-18) mg/dL Creatinine 0.9 (0.6-1.3) mg/dL Est Cr Clr Drug Dosing 55.20 mL/min Estimated GFR (MDRD) > 60 Glucose 117 H (74-105) mg/dL Calcium 7.9 L (8.4-10.2) mg/dl Vancomycin Trough 25.4 H (10-15) ug/ml 02/23/18 02/23/18 Range/Units 05:30 05:30 WBC 8.5 (5.0-10.0) 10^3/uL RBC 3.18 L (4.2-5.4) 10^6/uL Hgb 9.4 L (12.0-16.0) g/dL Hct 30.0 L (37.0-47.0) % MCV 94.3 (80-100) fL MCH 29.6 (27.0-34.0) pg MCHC 31.3 L (33.0-35.0) g/dL Plt Count 204 (150-450) 10^3/uL Neut % (Auto) 77.1 H (42.2-75.2) % Lymph % (Auto) 8.0 L (20.5-50.1) % Stevens % (Auto) 11.0 H (2-8) % Eos % (Auto) 3.7 H (1.0-3.0) % Baso % (Auto) 0.2 (0.0-1.0) % Sodium 138 (135-145) mmol/L Potassium 3.9 (3.6-5.0) mmol/L Chloride 106 (101-111) mmol/L Carbon Dioxide 27.0 (21.0-31.0) mmol/L Anion Gap 8.9 BUN 17 (7-18) mg/dL Creatinine 1.4 H (0.6-1.3) mg/dL Est Cr Clr Drug Dosing 35.49 mL/min Estimated GFR (MDRD) 39 Glucose 106 H (74-105) mg/dL Calcium 7.8 L (8.4-10.2) mg/dl Vancomycin Trough (10-15) ug/ml Juan M Results Last 24 Hours: Microbiology 02/21/18 12:46 Aerobic Blood Culture - Preliminary Blood - Venous - Lab Draw NO GROWTH AFTER 1 DAY Anaerobic Blood Culture - Preliminary NO GROWTH AFTER 1 DAY 02/21/18 12:52 Aerobic Blood Culture - Preliminary Blood - Venous NO GROWTH AFTER 1 DAY Anaerobic Blood Culture - Preliminary NO GROWTH AFTER 1 DAY Med Orders - Current: Current Medications Acetaminophen (Tylenol) 650 mg PO Q4H PRN PRN Reason: Pain (Mild 1-3)/fever Last Admin: 02/22/18 02:37 Dose: 650 mg Cyclosporine (Restasis) 1 each EYEBOTH BID [facility] Last Admin: 02/23/18 09:07 Dose: 1 drop Heparin Sodium (Porcine) (Heparin Sodium) 5,000 units SUBCUT Q8HR [facility] Last Admin: 02/23/18 05:44 Dose: 5,000 units Piperacillin Sod/Tazobactam (Sod 3.375 gm/ Sodium Chloride) 100 mls @ 200 mls/ hr IV Q6H [facility] Last Infusion: 02/23/18 07:00 Dose: Infused Ibuprofen (Motrin) 400 mg PO Q8H PRN PRN Reason: pain/ fever Last Admin: 02/23/18 06:12 Dose: 400 mg Lisinopril (Prinivil) 10 mg PO DAILY [facility] Last Admin: 02/23/18 09:07 Dose: 10 mg Morphine Sulfate (Morphine) 2 mg IVPUSH Q2H PRN PRN Reason: Pain (severe 7-10) Ondansetron HCl (Zofran Odt) 4 mg PO Q6H PRN PRN Reason: nausea, able to take PO Last Admin: 02/22/18 17:26 Dose: 4 mg Ondansetron HCl (Zofran) 4 mg IVPUSH Q6H PRN PRN Reason: Nausea/Vomiting Oxycodone/Acetaminophen (Percocet 325-5 Mg) 1 tab PO Q6H PRN PRN Reason: Pain Pantoprazole Sodium (Protonix) 40 mg PO BIDAC [facility] Last Admin: 05/19/18 05:44 Dose: 40 mg Vortioxetine Hydrobromide [ Trintellix] 20 Mg Pt's Own Med 0 each PO DAILY [facility] Last Admin: 02/23/18 09:06 Dose: 1 each Diclofenac Sodium 75mg Dr Tab Pt's Own Med 0 each PO Q12HR [facility] Last Admin: 02/23/18 09:09 Dose: 1 each Methocarbamol [ Robaxin] 500 Mg Pt 's Own Med 0 each PO TID PRN PRN Reason: Pain Ropinirole HCl (Requip) 1 mg PO BEDTIME [facility] Last Admin: 02/22/18 20:38 Dose: 1 mg Sodium Chloride (Saline Flush) 10 ml FLUSH ASDIRECTED PRN PRN Reason: Keep Vein Open Last Admin: 02/22/18 06:18 Dose: 10 ml Vancomycin HCl (Pharmacy To Dose - Vancomycin) 1 dose .XX ASDIRECTED [facility] Zolpidem Tartrate (Ambien) 5 mg PO BEDTIME PRN PRN Reason: Sleep Discontinued Medications Albuterol/Ipratropium (Duoneb 3.0-0.5 Mg/3 Ml) 3 ml NEB ONETIME ONE Stop: 02/21/18 05:32 Last Admin: 02/21/18 05:38 Dose: 3 ml Sodium Chloride (Normal Saline) 1,000 mls @ 999 mls/hr IV .BOLUS ONE Stop: 02/21/18 06:14 Last Admin: 02/21/18 05:28 Dose: 999 mls/hr Vancomycin HCl 2 gm/ Sodium (Chloride) 500 mls @ 334 mls/hr IV ONETIME ONE Stop: 02/21/18 11:00 Last Admin: 02/21/18 09:49 Dose: 208 mls/hr Vancomycin HCl 1.25 gm/ Sodium (Chloride) 250 mls @ 166.667 mls/hr IV Q8H [facility] Last Admin: 02/22/18 11:17 Dose: Not Given Vancomycin HCl 1.25 gm/ Sodium (Chloride) 250 mls @ 166.667 mls/hr IV Q12H [facility] Last Admin: 02/23/18 07:03 Dose: 166.667 mls/hr Iopamidol (Isovue-370 (76%)) 100 ml IVPUSH ONETIME ONE Stop: 02/21/18 06:14 Last Admin: 02/21/18 07:59 Dose: 83 ml Morphine Sulfate (Morphine) 4 mg IVPUSH ONETIME ONE Stop: 02/21/18 06:24 Last Admin: 02/21/18 06:28 Dose: 4 mg Ondansetron HCl (Zofran Odt) 4 mg PO ONETIME ONE Stop: 02/21/18 05:15 Last Admin: 02/21/18 05:30 Dose: 4 mg Pantoprazole Sodium (Protonix Iv) 80 mg IVPUSH .BOLUS ONE Stop: 02/21/18 06:25 Last Admin: 02/21/18 06:36 Dose: 80 mg Methocarbamol [ Robaxin] 500 Mg Pt 's Own Med 0 each PO Q4H PRN PRN Reason: Pain Potassium Chloride (Klor-Con 10) 40 meq PO ONETIME ONE Stop: 02/22/18 17:55 Last Admin: 02/22/18 19:16 Dose: 40 meq - Exam Quality Assessment: No: Supplemental Oxygen General: Alert, Oriented Neck: Supple Lungs: Clear to Auscultation, Normal Respiratory Effort Cardiovascular: Regular Rate, Regular Rhythm GI/Abdominal Exam: Normal Bowel Sounds, Soft, Non-Tender, Other (Obese) Extremities: No Pedal Edema, Other (I do not think that the patient has infectious involvement of knee the joint) Skin: Warm, Other (Left lower extremity erythema has improved.) - Problem List & Annotations (1) Cellulitis of left lower extremity SNOMED Code(s): 401947009 Code(s): L03.116 - CELLULITIS OF LEFT LOWER LIMB Status: Acute Current Visit: No - Problem List Review Problem List Initiated/Reviewed/Updated: Yes - My Orders Last 24 Hours: My Active Orders 02/22/18 16:45 Patient's Own Medication [Ptom] 0 each PO TID PRN 02/22/18 21:00 Patient's Own Medication [Ptom] 0 each PO Q12HR 02/24/18 05:15 BASIC METABOLIC PANEL,BMP [CHEM] AM 02/24/18 17:30 VANCOMYCIN TROUGH [CHEM] Timed - Plan Plan:: 57-year-old lady who presented with the nausea, vomiting. Noted to have left lower extremity redness. Cellulitis of the left lower extremity Blood culture pending Leukocytosis has resolved Redness improved continue treatment empirically with Zosyn Due to increased creatinine stop vancomycin Nausea, vomiting Might Relate to infection, possible gastroenteritis appears improved Continue diet as tolerated Chronic pain Use oxycodone by mouth, morphine IV when necessary Hypertension Treat with lisinopril Acute renal failure Creatinine up to 1.4 from 0.9 Might relate to vancomycin Stopped vancomycin Recheck renal function test in the morning DVT prophylaxis will be with subcutaneous heparin
[2018-02-23] MEDS: Ondansetron 4 MG Tab.DIS PO PRN (17:20)
[2018-02-23] MEDS: Sodium Chloride 0.9% 10 ML Syringe FLUSH PRN (18:54)
[2018-02-23] MEDS: rOPINIRole 2 MG Tab PO SCH (20:27)
[2018-02-24] MEDS: Heparin Sodium 5,000 Units/ML Vial SUBCUT SCH ×3 (05:42→21:53)
[2018-02-24] MEDS: Piperacillin/Tazobactam 3.375 GM in Sodium Chloride 0.9% 100 ML IV SCH (05:42)
[2018-02-24] MEDS: Pantoprazole 40 MG Tab.CR PO SCH ×2 (05:42→17:07)
[2018-02-24] MEDS: Lisinopril 10 MG Tab PO SCH (09:08)
[2018-02-24] MEDS: DICLOFENAC SODIUM 75 MG PO SCH ×2 (09:09→21:59)
[2018-02-24] MEDS: VORTIOXETINE HYDROBROMIDE 20 MG PO SCH (09:10)
[2018-02-24] MEDS: cycloSPORINE Ophth Drops U/D Box of 30 EYEBOTH SCH ×2 (09:11→21:54)
--- NOTE | 2018-02-24 10:18 | PCM.PN ---
- General Info Date of Service: 02/24/18 Admission Dx/Problem (Free Text): Admission Diagnosis/Problem Admission Diagnosis/Problem Cellulitis Subjective Update: The patient is a 57-year-old lady who presented with nausea vomiting, weakness. Noted to have left lower extremity cellulitis. Since admission the nausea has resolved, has been able to eat, no associated vomiting. no fever, improvement is the associated with left lower extremity redness. No chest pain, no shortness of breath. c/o non productive cough No diarrhea, no abdominal pain. - Review of Systems General: Denies: Fever, Weakness Pulmonary: Reports: Cough. Denies: Shortness of Breath Gastrointestinal: Denies: Abdominal Pain Genitourinary: Denies: Dysuria Neurological: Denies: Confusion - Patient Data Vitals - Most Recent: Last Vital Signs Temp 38.3 C H 02/24/18 07:00 Pulse 77 02/24/18 07:00 Resp 16 02/24/18 07:00 BP 120/51 L 02/24/18 09:08 Pulse Ox 99 02/24/18 07:00 Weight - Most Recent: 140.886 kg I&O - Last 24 Hours: Intake & Output 02/23/18 02/24/18 02/24/18 22:59 06:59 14:59 Intake Total 525 225 Output Total 600 Balance -75 225 Lab Results Last 24 Hours: Laboratory Results - last 24 hr 02/24/18 Range/Units 05:50 Sodium 137 (135-145) mmol/L Potassium 3.6 (3.6-5.0) mmol/L Chloride 105 (101-111) mmol/L Carbon Dioxide 23.0 (21.0-31.0) mmol/L Anion Gap 12.6 BUN 21 H (7-18) mg/dL Creatinine 2.1 H (0.6-1.3) mg/dL Est Cr Clr Drug Dosing 23.66 mL/min Estimated GFR (MDRD) 24 Glucose 99 (74-105) mg/dL Calcium 7.8 L (8.4-10.2) mg/dl Juan M Results Last 24 Hours: Microbiology 02/21/18 12:46 Aerobic Blood Culture - Preliminary Blood - Venous - Lab Draw NO GROWTH AFTER 2 DAYS Anaerobic Blood Culture - Preliminary NO GROWTH AFTER 2 DAYS 02/21/18 12:52 Aerobic Blood Culture - Preliminary Blood - Venous NO GROWTH AFTER 2 DAYS Anaerobic Blood Culture - Preliminary NO GROWTH AFTER 2 DAYS Med Orders - Current: Current Medications Acetaminophen (Tylenol) 650 mg PO Q4H PRN PRN Reason: Pain (Mild 1-3)/fever Last Admin: 02/22/18 02:37 Dose: 650 mg Cefazolin Sodium (Ancef) 1 gm IVPUSH Q8H [facility] Cyclosporine (Restasis) 1 each EYEBOTH BID [facility] Last Admin: 02/24/18 09:11 Dose: 1 drop Guaifenesin/Phenylephrine HCl (Robitussin Dm) 10 ml PO Q6H PRN PRN Reason: sob Heparin Sodium (Porcine) (Heparin Sodium) 5,000 units SUBCUT Q8HR [facility] Last Admin: 02/24/18 05:42 Dose: 5,000 units Sodium Chloride (Normal Saline) 1,000 mls @ 75 mls/hr IV ASDIRECTED [facility] Ibuprofen (Motrin) 400 mg PO Q8H PRN PRN Reason: pain/ fever Last Admin: 02/23/18 17:20 Dose: 400 mg Morphine Sulfate (Morphine) 2 mg IVPUSH Q2H PRN PRN Reason: Pain (severe 7-10) Ondansetron HCl (Zofran Odt) 4 mg PO Q6H PRN PRN Reason: nausea, able to take PO Last Admin: 02/23/18 17:20 Dose: 4 mg Ondansetron HCl (Zofran) 4 mg IVPUSH Q6H PRN PRN Reason: Nausea/Vomiting Oxycodone/Acetaminophen (Percocet 325-5 Mg) 1 tab PO Q6H PRN PRN Reason: Pain Pantoprazole Sodium (Protonix) 40 mg PO BIDAC [facility] Last Admin: 02/24/18 05:42 Dose: 40 mg Vortioxetine Hydrobromide [ Trintellix] 20 Mg Pt's Own Med 0 each PO DAILY [facility] Last Admin: 02/24/18 09:10 Dose: 1 each Diclofenac Sodium 75mg Dr Tab Pt's Own Med 0 each PO Q12HR [facility] Last Admin: 02/24/18 09:09 Dose: 1 each Methocarbamol [ Robaxin] 500 Mg Pt 's Own Med 0 each PO TID PRN PRN Reason: Pain Ropinirole HCl (Requip) 1 mg PO BEDTIME [facility] Last Admin: 02/23/18 20:27 Dose: 1 mg Sodium Chloride (Saline Flush) 10 ml FLUSH ASDIRECTED PRN PRN Reason: Keep Vein Open Last Admin: 02/23/18 18:54 Dose: 10 ml Zolpidem Tartrate (Ambien) 5 mg PO BEDTIME PRN PRN Reason: Sleep Discontinued Medications Albuterol/Ipratropium (Duoneb 3.0-0.5 Mg/3 Ml) 3 ml NEB ONETIME ONE Stop: 02/21/18 05:32 Last Admin: 02/21/18 05:38 Dose: 3 ml Sodium Chloride (Normal Saline) 1,000 mls @ 999 mls/hr IV .BOLUS ONE Stop: 02/21/18 06:14 Last Admin: 02/21/18 05:28 Dose: 999 mls/hr Vancomycin HCl 2 gm/ Sodium (Chloride) 500 mls @ 334 mls/hr IV ONETIME ONE Stop: 02/21/18 11:00 Last Admin: 02/21/18 09:49 Dose: 208 mls/hr Piperacillin Sod/Tazobactam (Sod 3.375 gm/ Sodium Chloride) 100 mls @ 200 mls/ hr IV Q6H [facility] Last Infusion: 02/24/18 06:34 Dose: Infused Vancomycin HCl 1.25 gm/ Sodium (Chloride) 250 mls @ 166.667 mls/hr IV Q8H [facility] Last Admin: 02/22/18 11:17 Dose: Not Given Vancomycin HCl 1.25 gm/ Sodium (Chloride) 250 mls @ 166.667 mls/hr IV Q12H [facility] Last Admin: 02/23/18 07:03 Dose: 166.667 mls/hr Iopamidol (Isovue-370 (76%)) 100 ml IVPUSH ONETIME ONE Stop: 02/21/18 06:14 Last Admin: 02/21/18 07:59 Dose: 83 ml Lisinopril (Prinivil) 10 mg PO DAILY [facility] Last Admin: 02/24/18 09:08 Dose: 10 mg Morphine Sulfate (Morphine) 4 mg IVPUSH ONETIME ONE Stop: 02/21/18 06:24 Last Admin: 02/21/18 06:28 Dose: 4 mg Ondansetron HCl (Zofran Odt) 4 mg PO ONETIME ONE Stop: 02/21/18 05:15 Last Admin: 02/21/18 05:30 Dose: 4 mg Pantoprazole Sodium (Protonix Iv) 80 mg IVPUSH .BOLUS ONE Stop: 02/21/18 06:25 Last Admin: 02/21/18 06:36 Dose: 80 mg Methocarbamol [ Robaxin] 500 Mg Pt 's Own Med 0 each PO Q4H PRN PRN Reason: Pain Potassium Chloride (Klor-Con 10) 40 meq PO ONETIME ONE Stop: 02/22/18 17:55 Last Admin: 02/22/18 19:16 Dose: 40 meq Vancomycin HCl (Pharmacy To Dose - Vancomycin) 1 dose .XX ASDIRECTED [facility] - Exam General: Alert, Oriented Neck: Supple Lungs: Clear to Auscultation, Normal Respiratory Effort Cardiovascular: Regular Rate, Regular Rhythm GI/Abdominal Exam: Normal Bowel Sounds, Soft, Non-Tender Extremities: Pedal Edema (left leg) Skin: Warm, Dry Neurological: No New Focal Deficit - Problem List & Annotations (1) Cellulitis of left lower extremity SNOMED Code(s): 841365523 Code(s): L03.116 - CELLULITIS OF LEFT LOWER LIMB Status: Acute Current Visit: No - Problem List Review Problem List Initiated/Reviewed/Updated: Yes - My Orders Last 24 Hours: My Active Orders 02/24/18 09:30 Sodium Chloride 0.9% [Normal Saline] 1,000 ml IV ASDIRECTED 02/24/18 10:00 ceFAZolin [Ancef] 1 gm IVPUSH Q8H 02/24/18 10:14 Dextromethorphan/guaiFENesin [Robitussin DM] 10 ml PO Q6H PRN 02/25/18 05:15 BASIC METABOLIC PANEL,BMP [CHEM] AM CBC WITH AUTO DIFF [HEME] AM - Plan Plan:: 57-year-old lady who presented with the nausea, vomiting. Noted to have left lower extremity redness. Cellulitis of the left lower extremity Blood culture pending Leukocytosis has resolved Redness improved Due to increased creatinine stop vancomycin, stop zosyn switch to ancef use compression for swelling Nausea, vomiting Might Relate to infection, possible gastroenteritis appears improved Continue diet as tolerated Chronic pain Use oxycodone by mouth, morphine IV when necessary Hypertension hold lisinopril re: [facility] Acute renal failure Creatinine is further up Might relate to vancomycin, zosyn Stop tate give IVF Recheck renal function test in the morning DVT prophylaxis will be with subcutaneous heparin
[2018-02-24] MEDS: Ibuprofen 400 MG Tab PO PRN ×2 (11:23→21:55)
[2018-02-24] MEDS: ceFAZolin 1 GM Vial IVPUSH SCH ×2 (11:24→17:46)
[2018-02-24] MEDS: Ondansetron 4 MG Tab.DIS PO PRN (12:32)
[2018-02-24] MEDS: Sodium Chloride 0.9% 1,000 ML IV SCH (12:33)
[2018-02-24] MEDS: guaiFENesin/Dextromethorphan 100-10 MG/5 ML Soln 5 ML Cup PO PRN ×2 (15:07→21:55)
[2018-02-24] MEDS: rOPINIRole 2 MG Tab PO SCH (21:53)
[2018-02-25] MEDS: ceFAZolin 1 GM Vial IVPUSH SCH ×2 (02:14→11:19)
[2018-02-25] MEDS: Sodium Chloride 0.9% 1,000 ML IV SCH (02:14)
[2018-02-25] MEDS: Pantoprazole 40 MG Tab.CR PO SCH (06:18)
[2018-02-25] MEDS: Heparin Sodium 5,000 Units/ML Vial SUBCUT SCH (06:18)
[2018-02-25] MEDS: guaiFENesin/Dextromethorphan 100-10 MG/5 ML Soln 5 ML Cup PO PRN (06:22)
[2018-02-25] MEDS: cycloSPORINE Ophth Drops U/D Box of 30 EYEBOTH SCH (09:10)
[2018-02-25] MEDS: DICLOFENAC SODIUM 75 MG PO SCH (09:13)
[2018-02-25] MEDS: VORTIOXETINE HYDROBROMIDE 20 MG PO SCH (09:14)
[2018-02-25] MEDS ORDERED: Potassium Chloride 10 MEQ Tab.ER PO ONE (12:12)
--- NOTE | 2018-02-25 12:29 | PCM.DCSUM1 ---
Discharge Summary - Hospital Course Free Text/Narrative:: 57-year-old lady who presented with the nausea, vomiting. Noted to have left lower extremity redness. Cellulitis of the left lower extremity Blood culture negative Leukocytosis has resolved Redness improved Due to increased creatinine stopped vancomycin, zosyn treat with Levofloxacin use compression for swelling Nausea, vomiting Might Relate to infection, possible gastroenteritis appears improved Continue diet as tolerated Chronic pain Use oxycodone by mouth when necessary Hypertension hold lisinopril re: ELMER Acute renal failure Might relate to vancomycin, zosyn Stop tate Recheck renal function test in 2 days - Discharge Data Discharge Date: 02/25/18 Discharge Disposition: Home, Self-Care 01 Condition: Stable - Discharge Diagnosis/Problem(s) (1) Cellulitis of left lower extremity SNOMED Code(s): 236712865 ICD Code: L03.116 - CELLULITIS OF LEFT LOWER LIMB Status: Acute Current Visit: No (2) ELMER (acute kidney injury) SNOMED Code(s): 79274896 ICD Code: N17.9 - ACUTE KIDNEY FAILURE, UNSPECIFIED Status: Acute Current Visit: Yes - Patient Instructions Diet: Heart Healthy Diet Activity: As Tolerated - Discharge Plan Prescriptions/Med Rec: Levofloxacin 500 mg PO DAILY #7 tablet Home Medications: Home Meds Methocarbamol [Robaxin] 500 mg PO Q4H PRN 02/21/18 [History] Vortioxetine Hydrobromide [Trintellix] 20 mg PO DAILY 02/21/18 [History] cycloSPORINE [Restasis] 1 each OP BID 02/21/18 [History] oxyCODONE HCl/Acetaminophen [Oxycodone-Acetaminophen 5-325] 1 tab PO BID PRN [History] rOPINIRole [Requip] 1 mg PO BEDTIME 02/21/18 [History] Levofloxacin 500 mg PO DAILY #7 tablet 02/25/18 [Rx] Patient Handouts: Cellulitis, Adult Referrals: PCP,None [Primary Care Provider] - (on Sunday with labs in the morning at [facility]) - Discharge Summary/Plan Comment DC Time >30 min.: No - General Info Date of Service: 02/25/18 Admission Dx/Problem (Free Text: Admission Diagnosis/Problem Admission Diagnosis/Problem Cellulitis Subjective Update: The patient is a 57-year-old lady who presented with nausea vomiting, weakness. Noted to have left lower extremity cellulitis. Since admission the nausea has resolved, has been able to eat, no associated vomiting. no fever, improvement is in the associated left lower extremity redness. - Review of Systems General: Denies: Fever Pulmonary: Denies: Shortness of Breath Cardiovascular: Denies: Chest Pain Genitourinary: Denies: Dysuria, Retention, Flank Pain Neurological: Denies: Confusion - Patient Data Vitals - Most Recent: Last Vital Signs Temp 37.3 C 02/25/18 07:58 Pulse 81 02/25/18 07:58 Resp 20 02/25/18 07:58 BP 119/57 L 02/25/18 07:58 Pulse Ox 98 02/25/18 07:58 Weight - Most Recent: 140.886 kg I&O - Last 24 hours: Intake & Output 02/24/18 02/25/18 02/25/18 22:59 06:59 14:59 Intake Total 320 1200 Output Total 700 850 Balance -380 350 Lab Results - Last 24 hrs: Laboratory Results - last 24 hr 02/25/18 02/25/18 Range/Units 05:35 05:35 WBC 9.9 (5.0-10.0) 10^3/uL RBC 3.27 L (4.2-5.4) 10^6/uL Hgb 9.6 L (12.0-16.0) g/dL Hct 30.5 L (37.0-47.0) % MCV 93.3 (80-100) fL MCH 29.4 (27.0-34.0) pg MCHC 31.5 L (33.0-35.0) g/dL Plt Count 297 D (150-450) 10^3/uL Neut % (Auto) 75.2 (42.2-75.2) % Lymph % (Auto) 12.6 L (20.5-50.1) % [place] % (Auto) 9.8 H (2-8) % Eos % (Auto) 2.1 (1.0-3.0) % Baso % (Auto) 0.3 (0.0-1.0) % Sodium 138 (135-145) mmol/L Potassium 3.4 L (3.6-5.0) mmol/L Chloride 106 (101-111) mmol/L Carbon Dioxide 24.0 (21.0-31.0) mmol/L Anion Gap 11.4 BUN 21 H (7-18) mg/dL Creatinine 2.2 H (0.6-1.3) mg/dL Est Cr Clr Drug Dosing 22.58 mL/min Estimated GFR (MDRD) 23 Glucose 91 (74-105) mg/dL Calcium 8.0 L (8.4-10.2) mg/dl TEO Results - Last 24 hrs: Microbiology 02/21/18 12:46 Aerobic Blood Culture - Preliminary Blood - Venous - Lab Draw NO GROWTH AFTER 3 DAYS Anaerobic Blood Culture - Preliminary NO GROWTH AFTER 3 DAYS 02/21/18 12:52 Aerobic Blood Culture - Preliminary Blood - Venous NO GROWTH AFTER 3 DAYS Anaerobic Blood Culture - Preliminary NO GROWTH AFTER 3 DAYS Med Orders - Current: Current Medications Acetaminophen (Tylenol) 650 mg PO Q4H PRN PRN Reason: Pain (Mild 1-3)/fever Last Admin: 02/22/18 02:37 Dose: 650 mg Cefazolin Sodium (Ancef) 1 gm IVPUSH Q8H [facility] Last Admin: 02/25/18 11:19 Dose: 1 gm Cyclosporine (Restasis) 1 each EYEBOTH BID [facility] Last Admin: 02/25/18 09:10 Dose: 1 drop Guaifenesin/Phenylephrine HCl (Robitussin Dm) 10 ml PO Q6H PRN PRN Reason: sob Last Admin: 02/25/18 06:22 Dose: 10 ml Heparin Sodium (Porcine) (Heparin Sodium) 5,000 units SUBCUT Q8HR [facility] Last Admin: 02/25/18 06:18 Dose: 5,000 units Sodium Chloride (Normal Saline) 1,000 mls @ 75 mls/hr IV ASDIRECTED [facility] Last Admin: 02/25/18 02:14 Dose: 75 mls/hr Ibuprofen (Motrin) 400 mg PO Q8H PRN PRN Reason: pain/ fever Last Admin: 02/24/18 21:55 Dose: 400 mg Morphine Sulfate (Morphine) 2 mg IVPUSH Q2H PRN PRN Reason: Pain (severe 7-10) Ondansetron HCl (Zofran Odt) 4 mg PO Q6H PRN PRN Reason: nausea, able to take PO Last Admin: 02/24/18 12:32 Dose: 4 mg Ondansetron HCl (Zofran) 4 mg IVPUSH Q6H PRN PRN Reason: Nausea/Vomiting Oxycodone/Acetaminophen (Percocet 325-5 Mg) 1 tab PO Q6H PRN PRN Reason: Pain Pantoprazole Sodium (Protonix) 40 mg PO BIDAC [facility] Last Admin: 02/25/18 06:18 Dose: 40 mg Vortioxetine Hydrobromide [ Trintellix] 20 Mg Pt's Own Med 0 each PO DAILY [facility] Last Admin: 02/25/18 09:14 Dose: 1 each Diclofenac Sodium 75mg Dr Tab Pt's Own Med 0 each PO Q12HR [facility] Last Admin: 02/25/18 09:13 Dose: 1 each Methocarbamol [ Robaxin] 500 Mg Pt 's Own Med 0 each PO TID PRN PRN Reason: Pain Ropinirole HCl (Requip) 1 mg PO BEDTIME [facility] Last Admin: 02/24/18 21:53 Dose: 1 mg Sodium Chloride (Saline Flush) 10 ml FLUSH ASDIRECTED PRN PRN Reason: Keep Vein Open Last Admin: 02/23/18 18:54 Dose: 10 ml Zolpidem Tartrate (Ambien) 5 mg PO BEDTIME PRN PRN Reason: Sleep Discontinued Medications Albuterol/Ipratropium (Duoneb 3.0-0.5 Mg/3 Ml) 3 ml NEB ONETIME ONE Stop: 02/21/18 05:32 Last Admin: 02/21/18 05:38 Dose: 3 ml Sodium Chloride (Normal Saline) 1,000 mls @ 999 mls/hr IV .BOLUS ONE Stop: 02/21/18 06:14 Last Admin: 02/21/18 05:28 Dose: 999 mls/hr Vancomycin HCl 2 gm/ Sodium (Chloride) 500 mls @ 334 mls/hr IV ONETIME ONE Stop: 02/21/18 11:00 Last Admin: 02/21/18 09:49 Dose: 208 mls/hr Piperacillin Sod/Tazobactam (Sod 3.375 gm/ Sodium Chloride) 100 mls @ 200 mls/ hr IV Q6H [facility] Last Infusion: 02/24/18 06:34 Dose: Infused Vancomycin HCl 1.25 gm/ Sodium (Chloride) 250 mls @ 166.667 mls/hr IV Q8H [facility] Last Admin: 02/22/18 11:17 Dose: Not Given Vancomycin HCl 1.25 gm/ Sodium (Chloride) 250 mls @ 166.667 mls/hr IV Q12H [facility] Last Admin: 02/23/18 07:03 Dose: 166.667 mls/hr Iopamidol (Isovue-370 (76%)) 100 ml IVPUSH ONETIME ONE Stop: 02/21/18 06:14 Last Admin: 02/21/18 07:59 Dose: 83 ml Lisinopril (Prinivil) 10 mg PO DAILY [facility] Last Admin: 02/24/18 09:08 Dose: 10 mg Morphine Sulfate (Morphine) 4 mg IVPUSH ONETIME ONE Stop: 02/21/18 06:24 Last Admin: 02/21/18 06:28 Dose: 4 mg Ondansetron HCl (Zofran Odt) 4 mg PO ONETIME ONE Stop: 02/21/18 05:15 Last Admin: 02/21/18 05:30 Dose: 4 mg Pantoprazole Sodium (Protonix Iv) 80 mg IVPUSH .BOLUS ONE Stop: 02/21/18 06:25 Last Admin: 02/21/18 06:36 Dose: 80 mg Methocarbamol [ Robaxin] 500 Mg Pt 's Own Med 0 each PO Q4H PRN PRN Reason: Pain Potassium Chloride (Klor-Con 10) 40 meq PO ONETIME ONE Stop: 02/22/18 17:55 Last Admin: 02/22/18 19:16 Dose: 40 meq Potassium Chloride (Klor-Con 10) 20 meq PO ONETIME ONE Stop: 02/25/18 12:13 Vancomycin HCl (Pharmacy To Dose - Vancomycin) 1 dose .XX ASDIRECTED [facility] - Exam General: Reports: Alert, Oriented Neck: Reports: Supple Lungs: Reports: Clear to Auscultation, Normal Respiratory Effort Cardiovascular: Reports: Regular Rate, Regular Rhythm GI/Abdominal Exam: Normal Bowel Sounds, Soft, Non-Tender Extremities: Pedal Edema (trace left leg) Skin: Reports: Warm, Other (mild redness left eg - improved)
[2018-02-25] MEDS ORDERED: ceFAZolin 1 GM in Premix Bag 1 BAG IV SCH (18:00)
--- NOTE | 2018-02-26 07:53 | EKG ---
02/21/2018- LOW MUÑOZ - FINDINGS: EKG per my reading, shows sinus rhythm at a rate of 94. [facility] /[id number]
== END 2018-02-25 13:45 | disposition home or self-care (01) | DRG 383 ==
LOC: DL.ED 04:38 → UNDOADMIN 10:33 → DL.MS 10:33
PROVIDERS: ADMIT Internal Medicine; ATTEND Internal Medicine
DX: L03.116 Cellulitis of left lower limb (principal); N17.9 Acute kidney failure, unspecified; I10 Essential (primary) hypertension; K21.9 Gastro-esophageal reflux disease without esophagitis; K52.9 Noninfective gastroenteritis and colitis, unspecified; G89.29 Other chronic pain; M54.9 Dorsalgia, unspecified; E66.9 Obesity, unspecified; Z68.43 Body mass index [BMI] 50.0-59.9, adult; Z79.899 Other long term (current) drug therapy; Z88.6 Allergy status to analgesic agent
CPT/HCPCS: 36415; 71260; 80048; 80053; 80202; 81001; 82150; 82553; 83605; 83690; 83880; 84484; 84550; 85025; 85379; 87040; 87804; 93005; 93971; 94640; 96361; 96365; 96375; 99285; A9270-GY; C9113; J0690; J1644; J2270; J2543; J3370; J7030; J7040; J7050; Q9967

== ENCOUNTER 2018-02-26 22:59 | Emergency (ER) | payer BC | END 2018-02-26 23:40 | disposition left against medical advice (07) | LOC: DL.ED 22:59 | DX: Z53.21 Procedure and treatment not carried out due to patient leaving prior to being seen by health care provider (principal) ==

== ENCOUNTER 2018-02-27 16:25 | Inpatient (IN) | payer BC ==
[2018-02-27] MEDS ORDERED: Ondansetron 4 MG Tab.DIS PO PRN (18:21)
[2018-02-27] MEDS ORDERED: Acetaminophen 325 MG Tab PO PRN (18:21)
[2018-02-27] MEDS: ceFAZolin 1 GM Vial IVPUSH SCH (18:44)
--- NOTE | 2018-02-27 18:47 | PCM.HP ---
H&P History of Present Illness - General Date of Service: 02/27/18 Admit Problem/Dx: Admission Diagnosis/Problem Admission Diagnosis/Problem Cellulitis and abscess Source of Information: Patient History Limitations: Reports: No Limitations - History of Present Illness Initial Comments - Free Text/Narative: The patient presented from the clinic with complaint of redness and discharge from the medial aspect of the left leg. She started having problem about 10 days ago with pain and redness. The patient was seen in the emergency room and admitted to the hospital. She demanded to be discharged on 25 Feb 2018. She was sent home on levofloxacin. At home she has not been doing well. She noted a discharge and area on the medial aspect of the left leg and increasing redness has went to see her primary care nurse practitioner. Patient was referred back to the hospital for admission. Indicates that she has been having nausea and vomiting. This has been difficult to control. Denies having fever or chills. Location: Reports: Lower Extremity, Left Quality: Reports: Ache Severity: Moderate Context: Reports: Activity/Exercise Associated Symptoms: Reports: Nausea/Vomiting - Related Data Allergies/Adverse Reactions: Allergies Allergy/AdvReac Type Severity Reaction Status Date / Time aspirin Allergy Mild Nausea Verified 02/21/18 11:22 Home Medications: Home Meds Methocarbamol [Robaxin] 500 mg PO Q4H PRN 02/21/18 [History] Vortioxetine Hydrobromide [Trintellix] 20 mg PO DAILY 02/21/18 [History] cycloSPORINE [Restasis] 1 each OP BID 02/21/18 [History] oxyCODONE HCl/Acetaminophen [Oxycodone-Acetaminophen 5-325] 1 tab PO BID PRN [History] rOPINIRole [Requip] 1 mg PO BEDTIME 02/21/18 [History] Levofloxacin 500 mg PO DAILY #7 tablet 02/25/18 [Rx] Past Medical History HEENT History: Reports: Impaired Vision Cardiovascular History: Reports: Hypertension Gastrointestinal History: Reports: GERD Musculoskeletal History: Reports: Back Pain, Chronic, Other (See Below) Other Musculoskeletal History: slipped disc. Endocrine/Metabolic History: Reports: Obesity/BMI 30+ Hematologic History: Reports: Anemia, Blood Transfusion(s), Other (See Below) Other Hematologic History: with knee surgeries Dermatologic History: Reports: Cellulitis - Infectious Disease History Infectious Disease History: Reports: None - Past Surgical History HEENT Surgical History: Reports: None Cardiovascular Surgical History: Reports: None GI Surgical History: Reports: None Endocrine Surgical History: Reports: None Musculoskeletal Surgical History: Reports: Knee Replacement, Other (See Below) Other Musculoskeletal Surgeries/Procedures:: betsy knee replacement Social & Family History - Family History Family Medical History: Noncontributory Cardiac: Reports: OR Other Cardiac Family History: Father. - Tobacco Use Smoking Status *Q: Never Smoker Second Hand Smoke Exposure: Yes - Caffeine Use Caffeine Use: Reports: None Other Caffeine Use: 1/ daily - Recreational Drug Use Recreational Drug Use: No H&P Review of Systems - Review of Systems: Review Of Systems: See Below General: Reports: No Symptoms HEENT: Reports: No Symptoms Pulmonary: Reports: No Symptoms Cardiovascular: Reports: No Symptoms Gastrointestinal: Reports: Nausea, Vomiting Genitourinary: Reports: No Symptoms Skin: Reports: Erythema Neurological: Reports: No Symptoms Hematologic/Lymphatic: Reports: No Symptoms Exam - Exam Exam: See Below - Vital Signs Vital Signs: Last Vital Signs Temp 36.4 C 02/27/18 16:31 Pulse 86 02/27/18 16:31 Resp 20 02/27/18 16:31 BP 143/61 H 02/27/18 16:31 Pulse Ox 98 02/27/18 16:31 Weight: 144.809 kg - Exam General: Alert, Oriented, 4 HEENT: PERRLA, Hearing Intact, Mucosa Moist & [place], Nares Patent, Normal Nasal Septum, Posterior Pharynx Clear, Conjunctiva Clear, EOMI, EACs Clear, TMs Clear Neck: Supple, Trachea Midline, 2 Lungs: Clear to Auscultation, Normal Respiratory Effort Cardiovascular: Regular Rate, Regular Rhythm GI/Abdominal Exam: Normal Bowel Sounds, Soft, Non-Tender, No Organomegaly, No Distention, No Abnormal Bruit, No Mass, Pelvis Stable Back Exam: Normal Inspection, Full Range of Motion, NT Extremities: Other (Left leg is swollen, erythematous, and has a discharging area) Skin: Warm, Dry, Intact Psychiatric: Alert, Normal Affect, Normal Mood Problem List Initiated/Reviewed/Updated: Yes Orders Last 24hrs: Active Orders 24 hr Category Date Time Status Patient Status [ADT] Routine ADT 02/27/18 18:22 Active Intake and Output [RC] QSHIFT Care 02/27/18 18:23 Active Oxygen Therapy [RC] PRN Care 02/27/18 18:22 Active Up ad Barbi [RC] ASDIRECTED Care 02/27/18 18:21 Active VTE/DVT Education [RC] PER UNIT ROUTINE Care 02/27/18 18:22 Active Vital Signs [RC] Q4H Care 02/27/18 18:22 Active Regular Diet [DIET] Diet 02/27/18 Dinner Active BASIC METABOLIC PANEL,BMP [CHEM] AM Lab 02/28/18 05:11 Ordered CBC WITH AUTO DIFF [HEME] AM Lab 02/28/18 05:11 Ordered Acetaminophen [Tylenol] Med 02/27/18 18:21 Active 650 mg PO Q4H PRN Enoxaparin [Lovenox] Med 02/28/18 09:00 Pending 40 mg SUBCUT DAILY Ondansetron [Zofran ODT] Med 02/27/18 18:21 Active 4 mg PO Q6H PRN Sodium Chloride 0.9% [Normal Saline] 1,000 ml Med 02/27/18 18:30 Active IV ASDIRECTED ceFAZolin [Ancef] Med 02/27/18 18:00 Active 2 gm IVPUSH Q8H Resuscitation Status Routine Resus Stat 02/27/18 18:21 Ordered Medication Orders Acetaminophen (Tylenol) 650 mg PO Q4H PRN PRN Reason: Pain (Mild 1-3)/fever Cefazolin Sodium (Ancef) 2 gm IVPUSH Q8H [facility] Enoxaparin Sodium (Lovenox) 40 mg SUBCUT DAILY [facility] Sodium Chloride (Normal Saline) 1,000 mls @ 75 mls/hr IV ASDIRECTED [facility] Ondansetron HCl (Zofran Odt) 4 mg PO Q6H PRN PRN Reason: nausea, able to take PO Assessment/Plan Comment:: #. Cellulitis of the left leg Left leg is erythematous and swollen. There is an area on the medial aspect of his discharging almost purulent fluid. #. Nausea and vomiting Probably due to ongoing infection. Patient is not septic. She is not febrile #. Hypertension Blood pressure is mostly within acceptable limits. #. Morbid obesity #. Chronic pain syndrome Patient has been on narcotic analgesics #. Acute renal failure Recently patient was noted to have elevated creatinine up to 2.1 It has been trending down. Reason for this is not obvious Plan: Admit patient to medical floor Intravenous fluid for rehydration Start intravenous cefazolin 2 g every 8 hours Patient will benefit from lymphedema wraps Consult occupational therapy for lymphedema wraps DVT prophylaxis recommended Zofran for nausea Antibiotic protocol Patient's medical chart was reviewed.
[2018-02-27] MEDS: Sodium Chloride 0.9% 1,000 ML IV SCH (19:40)
[2018-02-27] MEDS ORDERED: rOPINIRole 2 MG Tab PO SCH (21:00)
[2018-02-27] MEDS ORDERED: Acetaminophen/oxyCODONE 325-5 MG Tab PO PRN (22:17)
[2018-02-27] MEDS: [UNRECOGNIZED DRUG - OTHER] EYEBOTH SCH (22:24)
[2018-02-28] MEDS: ceFAZolin 1 GM Vial IVPUSH SCH (03:22)
[2018-02-28] MEDS ORDERED: Enoxaparin 40 MG/0.4 ML Syringe SUBCUT SCH (09:00)
[2018-02-28] MEDS ORDERED: [UNRECOGNIZED DRUG - REMARK] PO SCH (09:00)
[2018-02-28] MEDS: Sodium Chloride 0.9% 1,000 ML IV SCH (10:12)
[2018-02-28] MEDS ORDERED: Vancomycin 1.5 GM in Sodium Chloride 0.9% 500 ML IV SCH (10:30)
[2018-02-28] MEDS: [UNRECOGNIZED DRUG - OTHER] EYEBOTH SCH (10:44)
[2018-02-28] MEDS ORDERED: DAPTOmycin 500 MG Vial IV SCH (11:30)
--- NOTE | 2018-02-28 12:55 | US ---
Clinical history: 57-year-old obese female with swollen, red left leg. DVT? Abscess? "No DVT left low er extremity" reported on previous ultrasound exam this institution, 21 Feb 2018. Patient is 320 poun ds with a serum D dimer of 1310. Interpretation: Solitary large lymph node left groin (2.5 x 3.7 cm). Superficial varicosities reporte d on previous exam. *Isolated irregular collection of fluid identified immediately beneath the incision line (surgery 5 y ears ago) left knee that has internal debris (this avascular collection measures 5.2 x 5.4 x 3.0 cm a nd may communicate with ipsilateral knee joint). Possible abscess. MRI of the knee suggested. No current signs of deep vein thrombosis groin or thigh left lower extremity i.e. no sign of intralum inal echogenic thrombus and normal compressibility, augmentation deep veins left groin and thigh (rosanna hnologist "unable to visualize deep veins distally", left leg).
--- NOTE | 2018-02-28 15:03 | PCM.DCSUM1 ---
Discharge Summary - Hospital Course Free Text/Narrative:: 57 yo F with PMH of hypertension, obesity, restless leg syndrome, who presents with swelling, redness of left lower extremity with punctate wounds draining pus. She had an ultrasound of the lower extremity that showed an isolated, irregular collection of fluid near the left knee measuring 5.2 x 5.4 x 3.0 cm likely abscess, may be communicating with knee joint. She was initially placed on Ancef, but due to presence of pus, Daptomycin was given today. (She had an ELMER with CR 2.1 when she received Vancomycin earlier in the week). Will refer to higher level of care ([facility]) for emergency drainage of abscess of possible septic knee. I discussed with Dr. Angel Ponce of [facility] and he will accept care of the patient today. - Discharge Data Discharge Date: 02/28/18 Discharge Disposition: DC/Tfer to Acute Hospital 02 Condition: Fair - Patient Instructions Diet: Regular Diet as Tolerated Activity: Bedrest - Discharge Plan Home Medications: Home Meds Methocarbamol [Robaxin] 500 mg PO Q4H PRN 02/21/18 [History] Vortioxetine Hydrobromide [Trintellix] 20 mg PO DAILY 02/21/18 [History] cycloSPORINE [Restasis] 1 each OP BID 02/21/18 [History] oxyCODONE HCl/Acetaminophen [Oxycodone-Acetaminophen 5-325] 1 tab PO BID PRN [History] rOPINIRole [Requip] 1 mg PO BEDTIME 02/21/18 [History] Levofloxacin 500 mg PO DAILY #7 tablet 02/25/18 [Rx] Acetaminophen [Tylenol] 650 mg PO Q4H PRN #0 tablet 02/28/18 [Rx] Acetaminophen/oxyCODONE [Percocet 325-5 MG] 1 tab PO Q6H PRN tablet 02/28/18 [ Rx] DAPTOmycin [Cubicin] 500 mg IV Q24H vial 02/28/18 [Rx] Enoxaparin [Lovenox] 40 mg SUBCUT DAILY syringe 02/28/18 [Rx] Non-Formulary Medication [NF Drug] 20 each PO DAILY each 02/28/18 [Rx] Ondansetron [Zofran ODT] 4 mg PO Q6H PRN tab.dis 02/28/18 [Rx] cycloSPORINE [Restasis] 1 each EYEBOTH BID each 02/28/18 [Rx] rOPINIRole [Requip] 1 mg PO BEDTIME tablet 02/28/18 [Rx] - Patient Data Vitals - Most Recent: Last Vital Signs Temp 36.4 C 02/28/18 11:00 Pulse 64 02/28/18 11:00 Resp 15 02/28/18 11:00 BP 146/67 H 02/28/18 11:00 Pulse Ox 100 02/28/18 11:00 Weight - Most Recent: 145.15 kg I&O - Last 24 hours: Intake & Output 02/27/18 02/28/18 02/28/18 22:59 06:59 14:59 Intake Total 624 Output Total 850 Balance -226 Lab Results - Last 24 hrs: Laboratory Results - last 24 hr 02/28/18 02/28/18 Range/Units 06:34 06:34 WBC 8.4 (5.0-10.0) 10^3/uL RBC 3.21 L (4.2-5.4) 10^6/uL Hgb 9.4 L (12.0-16.0) g/dL Hct 29.9 L (37.0-47.0) % MCV 93.1 (80-100) fL MCH 29.3 (27.0-34.0) pg MCHC 31.4 L (33.0-35.0) g/dL Plt Count 418 D (150-450) 10^3/uL Neut % (Auto) 67.2 (42.2-75.2) % Lymph % (Auto) 18.9 L (20.5-50.1) % [place] % (Auto) 10.8 H (2-8) % Eos % (Auto) 2.6 (1.0-3.0) % Baso % (Auto) 0.5 (0.0-1.0) % Add Manual Diff Yes Neutrophils % (Manual) 68 (42-75) % Band Neutrophils % 4 % Lymphocytes % (Manual) 21 (20-50) % Monocytes % (Manual) 2 (2-8) % Eosinophils % (Manual) 5 H (1-3) % Sodium 140 (135-145) mmol/L Potassium 3.5 L (3.6-5.0) mmol/L Chloride 109 (101-111) mmol/L Carbon Dioxide 21.0 (21.0-31.0) mmol/L Anion Gap 13.5 BUN 18 (7-18) mg/dL Creatinine 1.5 H (0.6-1.3) mg/dL Est Cr Clr Drug Dosing 33.12 mL/min Estimated GFR (MDRD) 36 Glucose 91 (74-105) mg/dL Calcium 8.3 L (8.4-10.2) mg/dl Med Orders - Current: Current Medications Acetaminophen (Tylenol) 650 mg PO Q4H PRN PRN Reason: Pain (Mild 1-3)/fever Last Admin: 02/27/18 22:28 Dose: 650 mg Cyclosporine (Restasis) 1 each EYEBOTH BID [facility] Last Admin: 02/28/18 10:44 Dose: 1 drop Daptomycin (Cubicin) 500 mg IV Q24H [facility] Last Admin: 02/28/18 13:12 Dose: 500 mg Enoxaparin Sodium (Lovenox) 40 mg SUBCUT DAILY [facility] Last Admin: 02/28/18 10:43 Dose: 40 mg Sodium Chloride (Normal Saline) 1,000 mls @ 75 mls/hr IV ASDIRECTED [facility] Last Admin: 02/28/18 10:12 Dose: 75 mls/hr Non-Form Trintellix 20 Mg Tab Own Med 20 each PO DAILY [facility] Last Admin: 02/28/18 10:42 Dose: 20 each Ondansetron HCl (Zofran Odt) 4 mg PO Q6H PRN PRN Reason: nausea, able to take PO Last Admin: 02/28/18 11:52 Dose: 4 mg Oxycodone/Acetaminophen (Percocet 325-5 Mg) 1 tab PO Q6H PRN PRN Reason: Pain Ropinirole HCl (Requip) 1 mg PO BEDTIME [facility] Last Admin: 02/27/18 22:22 Dose: 1 mg Discontinued Medications Cefazolin Sodium (Ancef) 2 gm IVPUSH Q8H [facility] Last Admin: 02/28/18 03:22 Dose: 2 gm Vancomycin HCl 1.25 gm/ Sodium (Chloride) 250 mls @ 167 mls/hr IV Q12H [facility] Vancomycin HCl 1.5 gm/ Sodium (Chloride) 500 mls @ 334 mls/hr IV Q24H [facility] Last Admin: 02/28/18 10:52 Dose: Not Given
== END 2018-02-28 16:15 | DRG 344 ==
LOC: UNDOADMIN 16:25 → DL.MS 16:25
PROVIDERS: ADMIT Hospitalist; ATTEND Hospitalist
DX: M00.9 Pyogenic arthritis, unspecified (principal); I10 Essential (primary) hypertension; K21.9 Gastro-esophageal reflux disease without esophagitis; E66.01 Morbid (severe) obesity due to excess calories; Z68.43 Body mass index [BMI] 50.0-59.9, adult; M54.9 Dorsalgia, unspecified; G89.29 Other chronic pain; N17.9 Acute kidney failure, unspecified; G25.81 Restless legs syndrome; Z88.6 Allergy status to analgesic agent; Z79.899 Other long term (current) drug therapy; Z96.653 Presence of artificial knee joint, bilateral
CPT/HCPCS: 36415; 76881-LT; 80048; 85025; A9270-GY; J0690; J0878; J1650; J7030

== ENCOUNTER 2020-05-23 10:25 | Emergency (ER) | payer BC ==
[2020-05-23] MEDS ORDERED: Ketorolac 30 MG/ML SDV IVPUSH ONE (10:44)
--- NOTE | 2020-05-23 10:46 | EDM.PDOC ---
ED HPI GENERAL MEDICAL PROBLEM - General Chief Complaint: Lower Extremity Injury/Pain Stated Complaint: IN BY AMBULANCE Time Seen by Provider: 05/23/20 10:35 Source of Information: Reports: Patient, RN History Limitations: Reports: Other (Pain) - History of Present Illness INITIAL COMMENTS - FREE TEXT/NARRATIVE: %* year female who presents to the ER an hour after slipping on grease at work and falling on her left side. Patient reports she managed to walk after the incident but the pain was worst. She reports her left knee twisted and she fell on her left side. She has a history of bilateral knee replacements. She is complaining of pain of a 10/10. She had 90mcg of fentanyl in the ambulance enroute to the ER. Patient reports pain is still a 10/10. She denies hitting her head or loss of consciousness. Left Knee Pain Score (Numeric/FACES): 9 - Related Data Allergies Allergy/AdvReac Type Severity Reaction Status Date / Time aspirin Allergy Mild Nausea Verified 05/23/20 10:28 Home Meds: Home Meds Methocarbamol [Robaxin] 500 mg PO Q4H PRN 02/21/18 [History] Vortioxetine Hydrobromide [Trintellix] 20 mg PO DAILY 02/21/18 [History] cycloSPORINE [Restasis] 1 each OP BID 02/21/18 [History] oxyCODONE HCl/Acetaminophen [Oxycodone-Acetaminophen 5-325] 1 tab PO BID PRN 02/21/18 [History] rOPINIRole [Requip] 1 mg PO BEDTIME 02/21/18 [History] Levofloxacin 500 mg PO DAILY #7 tablet 02/25/18 [Rx] Acetaminophen [Tylenol] 650 mg PO Q4H PRN #0 tablet 02/28/18 [Rx] Acetaminophen/oxyCODONE [Percocet 325-5 MG] 1 tab PO Q6H PRN tablet 02/28/18 [Rx] DAPTOmycin [Cubicin] 500 mg IV Q24H vial 02/28/18 [Rx] Enoxaparin [Lovenox] 40 mg SUBCUT DAILY syringe 02/28/18 [Rx] Non-Formulary Medication [NF Drug] 20 each PO DAILY each 02/28/18 [Rx] Ondansetron [Zofran ODT] 4 mg PO Q6H PRN tab.dis 02/28/18 [Rx] cycloSPORINE [Restasis] 1 each EYEBOTH BID each 02/28/18 [Rx] rOPINIRole [Requip] 1 mg PO BEDTIME tablet 02/28/18 [Rx] Past Medical History HEENT History: Reports: Impaired Vision Cardiovascular History: Reports: Hypertension Gastrointestinal History: Reports: GERD Musculoskeletal History: Reports: Back Pain, Chronic, Other (See Below) Other Musculoskeletal History: slipped disc. Endocrine/Metabolic History: Reports: Obesity/BMI 30+ Hematologic History: Reports: Anemia, Blood Transfusion(s), Other (See Below) Other Hematologic History: with knee surgeries Dermatologic History: Reports: Cellulitis - Infectious Disease History Infectious Disease History: Reports: None - Past Surgical History HEENT Surgical History: Reports: None Cardiovascular Surgical History: Reports: None GI Surgical History: Reports: None Endocrine Surgical History: Reports: None Musculoskeletal Surgical History: Reports: Knee Replacement, Other (See Below) Other Musculoskeletal Surgeries/Procedures:: betsy knee replacement Social & Family History - Family History Family Medical History: Noncontributory Cardiac: Reports: IN Other Cardiac Family History: Father. - Caffeine Use Caffeine Use: Reports: None Other Caffeine Use: 1/ daily Review of Systems - Review of Systems Review Of Systems: See Below Constitutional: Reports: No Symptoms, Other (Pain in the left knee) Respiratory: Reports: No Symptoms GI/Abdominal: Reports: No Symptoms Genitourinary: Reports: No Symptoms Musculoskeletal: Reports: Joint Pain (left knee), Muscle Pain, Other (right knee with good ROM. Unable to move left knee/leg due to pain. Neurovascular status of both legs intact). Denies: Joint Swelling Skin: Reports: No Symptoms Neurological: Reports: No Symptoms Psychiatric: Reports: Anxiety ED EXAM, GENERAL - Physical Exam Exam: See Below Exam Limited By: Physical Impairment General Appearance: Alert, Severe Distress, Obese Eye Exam: Bilateral Eye: PERRL Ears: Normal External Exam, Normal Canal, Hearing Grossly Normal, Normal TMs Nose: Normal Inspection, Normal Mucosa, No Blood Throat/Mouth: Normal Inspection, Normal Lips, Normal Teeth, Normal Gums, Normal Oropharynx, Normal Voice, No Airway Compromise Head: Atraumatic, Normocephalic Neck: Normal Inspection, Supple, Non-Tender, Full Range of Motion Respiratory/Chest: No Respiratory Distress, Lungs Clear, Normal Breath Sounds, No Accessory Muscle Use, Chest Non-Tender Cardiovascular: Normal Peripheral Pulses, Regular Rate, Rhythm, No Edema, No Gallop, No JVD, No Murmur, No Rub Peripheral Pulses: 4+: Posterior Tibial (L), Posterior Tibial (R), Dorsalis Pedis (L), Dorsalis Pedis (R) GI/Abdominal: Normal Bowel Sounds, Soft, Non-Tender Extremities: Normal Capillary Refill, Limited Range of Motion (left knee), Other (Good ROM with right leg and unable to perform left ROM due to pain.) Neurological: Alert, Oriented, No Motor/Sensory Deficits Psychiatric: Anxious, Tearful Skin Exam: Warm, Intact Lymphatic: No Adenopathy Course - Vital Signs Last Recorded V/S: Last Vital Signs Temp 97.8 F 05/23/20 10:26 Pulse 92 05/23/20 10:26 Resp 20 05/23/20 10:26 BP 148/97 H 05/23/20 10:26 Pulse Ox 97 05/23/20 10:26 - Orders/Labs/Meds Labs: Laboratory Tests 05/23/20 05/23/20 Range/Units 10:32 10:32 WBC 7.9 (5.0-10.0) 10^3/uL RBC 4.19 L (4.2-5.4) 10^6/uL Hgb 12.1 D (12.0-16.0) g/dL Hct 37.9 (37.0-47.0) % MCV 90.5 (80-100) fL MCH 28.9 (27.0-34.0) pg MCHC 31.9 L (33.0-35.0) g/dL Plt Count 325 D (150-450) 10^3/uL Neut % (Auto) 61.1 (42.2-75.2) % Lymph % (Auto) 28.6 (20.5-50.1) % Lipscomb % (Auto) 7.5 (2-8) % Eos % (Auto) 2.2 (1.0-3.0) % Baso % (Auto) 0.6 (0.0-1.0) % Sodium 138 (136-145) mmol/L Potassium 4.1 (3.5-5.1) mmol/L Chloride 103 (98-107) mmol/L Carbon Dioxide 25 (21-32) mmol/L Anion Gap 14.1 H (7-13) mEq/L BUN 20 H (7-18) mg/dL Creatinine 0.92 (0.55-1.02) mg/dL Est Cr Clr Drug Dosing 50.30 mL/min Estimated GFR (MDRD) > 60 BUN/Creatinine Ratio 21.7 (No establ ref range) Glucose 116 H (74-99) mg/dL Calcium 8.7 (8.5-10.1) mg/dL Total Bilirubin 0.3 (0.2-1.0) mg/dL AST 15 (15-37) U/L ALT 25 (14-59) U/L Alkaline Phosphatase 83 (46-116) U/L Total Protein 7.2 (6.4-8.2) g/dL Albumin 3.7 (3.4-5.0) g/dL Globulin 3.5 Albumin/Globulin Ratio 1.1 Meds: Medications Discontinued Medications Generic Name Dose Route Start Last Admin Trade Name Freq PRN Reason Stop Dose Admin Diazepam 5 mg 05/23/20 10:44 05/23/20 10:51 Valium IVPUSH 05/23/20 10:45 5 mg ONETIME ONE Administration Fentanyl 50 mcg 05/23/20 11:48 05/23/20 11:59 Sublimaze IVPUSH 05/23/20 11:49 50 mcg ONETIME ONE Administration Ketorolac Tromethamine 30 mg 05/23/20 10:44 05/23/20 10:51 Toradol IVPUSH 05/23/20 10:45 30 mg ONETIME ONE Administration - Re-Assessments/Exams Free Text/Narrative Re-Assessment/Exam: 59 year old female brought into the ER by ambulance after she slipped on grease and fell at work. She is complaining of left knee pain. She had 90 mcg of fentanyl on enroute to the ER. She was given Valium and Toradol. Left knee and leg xray ordered.X ray results reviewed with patient. Discussed case with Dr. Leon who accepted patient for transfer. Knee immobilized and Fentanyl 50 mcg administered. Patient transferred to [facility] Departure - Departure Time of Disposition: 11:35 Disposition: DC/Tfer to Acute Hospital 02 Condition: Serious Clinical Impression: Femur fracture, left Qualifiers: Encounter type: initial encounter Femur location: distal physis (incl. Salter- Delgado) Oswalder-Delgado Fracture Type: unspecified configuration Qualified Code(s): S79.102A - Unspecified physeal fracture of lower end of left femur, initial encounter for closed fracture - Discharge Information Forms: Interfacility Transfer DAVID Sepsis Event Note (ED) - Focused Exam Vital Signs: Vital Signs Temp Pulse Resp BP Pulse Ox 05/23/20 10:26 97.8 F 92 20 148/97 H 97
[2020-05-23 11:10] LABS: ANION GAP 14.1 mEq/L (7-13); CHLORIDE,CL 103 mmol/L (98-107); SODIUM,NA 138 mmol/L (136-145)
--- NOTE | 2020-05-23 11:40 | CR ---
PROCEDURE INFORMATION: Exam: XR Left Hip with Pelvis when Performed Exam date and time: 05/23/2020 10:45 AM Age: 59 years old Clinical indication: Injury or trauma; Fall; Work related; Initial encounter; Abrasion; Left; Hip; Injury date: Today; Additional info: Fell at work TECHNIQUE: Imaging protocol: XR Left hip with pelvis when performed. Views: 1 view. COMPARISON: No relevant prior studies available. FINDINGS: Bones/joints: The view of the left hip is suboptimal given that the views are not at all centered on the left hip. Soft tissues: Normal. Vasculature: Diffuse atherosclerosis. IMPRESSION: No abnormalities noted, however, substandard patient positioning four views of the left hip. Incidentally noted atherosclerosis.
--- NOTE | 2020-05-23 11:41 | CR ---
PROCEDURE INFORMATION: Exam: XR Left Knee Exam date and time: 05/23/2020 11:00 AM Age: 59 years old Clinical indication: Injury or trauma; Fall; Work related; Initial encounter; Fracture, traumatic; Other: Fracture above left knee replacement; Lower end of femur; Injury date: Today; Prior surgery; Surgery date: 6+ months; Additional info: Fell on the left knee TECHNIQUE: Imaging protocol: XR Left knee. Views: 1 or 2 views. COMPARISON: CR Knee 3V Lt 06/05/2018 1:13 PM FINDINGS: Bones/joints: Acute comminuted fracture of the distal left femur extending slightly proximal to in than distally and involving a left total knee arthroplasty. The distal fragment is displaced posteriorly up to 1.3 cm. The visualized portions of proximal tibia and fibula are intact. Soft tissues: Normal. IMPRESSION: Acute, comminuted and mildly displaced fracture of the distal left femur extending to the proximal dorsal portion of a left femur prosthesis. The prosthesis still appears otherwise adequately attached and intact.
[2020-05-23] MEDS ORDERED: fentaNYL 100 MCG/2 ML SDV IVPUSH ONE (11:48)
== END 2020-05-23 12:25 ==
LOC: DL.ED 10:25
DX: S79.102A Unspecified physeal fracture of lower end of left femur, initial encounter for closed fracture (principal); I10 Essential (primary) hypertension; K21.9 Gastro-esophageal reflux disease without esophagitis; E66.9 Obesity, unspecified; Z88.6 Allergy status to analgesic agent; Z79.899 Other long term (current) drug therapy; Z68.44 Body mass index [BMI] 60.0-69.9, adult; W01.0XXA Fall on same level from slipping, tripping and stumbling without subsequent striking against object, initial encounter; Y92.89 Other specified places as the place of occurrence of the external cause; Y99.0 Civilian activity done for income or pay
CPT/HCPCS: 36415; 73501; 73560; 80053; 85025; 96374; 96375; 99285; J1885; J3010; J3360

== ENCOUNTER 2021-11-27 22:13 | Emergency (ER) | payer BC, OTHER ==
[2021-11-27] MEDS ORDERED: methylPREDNISolone Sodium Succinate 125 MG/2 ML SDV IM ONE (23:50)
== END 2021-11-28 00:08 | disposition home or self-care (01) ==
LOC: DL.ED 22:13
DX: M54.42 Lumbago with sciatica, left side (principal); M54.41 Lumbago with sciatica, right side; K21.9 Gastro-esophageal reflux disease without esophagitis; I10 Essential (primary) hypertension; E66.9 Obesity, unspecified; Z68.43 Body mass index [BMI] 50.0-59.9, adult
CPT/HCPCS: 96372; 99283; J2930

== ENCOUNTER 2022-01-21 21:46 | Emergency (ER) | payer BC ==
[2022-01-22] MEDS ORDERED: Sodium Chloride 0.9% 500 ML IV ONE (00:05)
[2022-01-22] MEDS ORDERED: Sodium Chloride 0.9% 10 ML Syringe FLUSH PRN (00:07)
[2022-01-22] MEDS ORDERED: Sodium Chloride 0.9% 500 ML IV SCH ×2 (00:15→03:00)
[2022-01-22] MEDS ORDERED: Iopamidol 755 Mg/ML 100 ML Bottle IVPUSH ONE (00:19)
[2022-01-22 00:39] LABS: ANION GAP 11.9 mEq/L (7-13); CHLORIDE,CL 96 mmol/L (98-107); SODIUM,NA 137 mmol/L (136-145)
[2022-01-22] MEDS ORDERED: Norepinephrine 4 MG in Dextrose 5% in Water 246 ML IV SCH ×2 (02:30)
[2022-01-22 02:42] LABS: CORONAVIRUS COVID-19 NAA NEGATIVE (NEGATIVE)
[2022-01-22] MEDS ORDERED: Piperacillin/Tazobactam 3.375 GM in Sodium Chloride 0.9% 100 ML IV ONE (03:05)
[2022-01-22] MEDS ORDERED: Sodium Chloride 0.9% 500 ML IV STA (03:18)
== END 2022-01-22 04:35 ==
LOC: DL.ED 21:46
DX: A41.9 Sepsis, unspecified organism (principal); R65.21 Severe sepsis with septic shock; I26.99 Other pulmonary embolism without acute cor pulmonale; I95.9 Hypotension, unspecified; I10 Essential (primary) hypertension; K21.9 Gastro-esophageal reflux disease without esophagitis; E66.9 Obesity, unspecified; Z20.822 Contact with and (suspected) exposure to COVID-19; Z88.8 Allergy status to other drugs, medicaments and biological substances; Z79.899 Other long term (current) drug therapy; Z68.43 Body mass index [BMI] 50.0-59.9, adult
CPT/HCPCS: 0240U; 36415; 71250; 80053; 81001; 83690; 83735; 83880; 84484; 85025; 85610; 87040; 87086; 93005; 94762; 96365; 96366; 96368; 99285-25; J2543; J7040; J7060

== ENCOUNTER 2022-02-12 17:30 | Emergency (ER) | payer BC, MEDICAID ==
[2022-02-12] MEDS ORDERED: Sodium Chloride 0.9% 10 ML Syringe FLUSH PRN (18:09)
[2022-02-12] MEDS ORDERED: Sodium Chloride 0.9% 1,000 ML IV ONE ×3 (18:17→19:23)
[2022-02-12 18:50] LABS: ANION GAP 9.9 mEq/L (7-13)
[2022-02-12] MEDS ORDERED: Potassium Chloride 10 MEQ in Premix Bag 1 BAG IV ONE (19:07)
[2022-02-12] MEDS ORDERED: Potassium Chloride 10 MEQ Tab.ER PO ONE (19:09)
[2022-02-12 19:42] LABS: CORONAVIRUS COVID-19 NAA NEGATIVE (NEGATIVE); RESPIRATORY SYNCYTIAL VIR NAA NEGATIVE (NEGATIVE)
[2022-02-12] MEDS ORDERED: Potassium Chloride Riders 50 ML ONE (19:57)
[2022-02-12] MEDS ORDERED: Potassium Chloride Riders 10 MEQ in Premix Bag 1 BAG IV ONE (20:00)
== END 2022-02-12 21:52 | disposition home or self-care (01) ==
LOC: DL.ED 17:30
DX: N17.9 Acute kidney failure, unspecified (principal); E86.0 Dehydration; I10 Essential (primary) hypertension; K21.9 Gastro-esophageal reflux disease without esophagitis; E66.9 Obesity, unspecified; Z68.43 Body mass index [BMI] 50.0-59.9, adult; Z88.8 Allergy status to other drugs, medicaments and biological substances; Z79.01 Long term (current) use of anticoagulants; Z79.899 Other long term (current) drug therapy; Z20.822 Contact with and (suspected) exposure to COVID-19
CPT/HCPCS: 0241U; 36415; 80053; 83605; 83735; 83880; 84100; 84443; 84484; 85025; 86140; 93005; 99284; A9270; J3480; J3490; J7030; 93010

== ENCOUNTER 2025-09-16 08:26 | Day surgery (SDC) | payer MEDICARE, MEDICAID ==
[~2025-09-16 08:26] MED LIST: Ondansetron 4 MG/2 ML SDV IVPUSH PRN
[2025-09-16] MEDS: Povidone-Iodine 5% Sterile Ophth Soln 30 ML Bottle EYERT ONE ×2 (09:10→10:10)
[2025-09-16] MEDS: Moxifloxacin 0.5% Ophth Soln 3 ML Bottle EYERT ONE (09:10)
[2025-09-16] MEDS: Phenylephrine 10% Ophth Soln 5 ML Bot EYERT PRN (09:12)
[2025-09-16] MEDS: Timolol Maleate 0.5% Ophth Soln 5 ML Bottle EYERT ONE (09:13)
[2025-09-16] MEDS: Cataract Ophth Solution EYERT ONE (09:14)
[2025-09-16] MEDS: Diclofenac Sodium 0.1% Ophth Soln 5 ML Bottle EYERT ONE (10:10)
[2025-09-16] MEDS: Apraclonidine 0.5% Ophth Soln 5 ML Bot EYERT ONE (10:10)
[2025-09-16] MEDS: Dexamethasone/Neomycin/Polymyxin B Ophth Oint 3.5 GM Tube EYERT ONE (10:10)
[2025-09-16] MEDS ORDERED: Dexamethasone 4 MG/ML SDV ONE (10:48)
== END 2025-09-16 11:06 | disposition home or self-care (01) ==
LOC: DL.SDS 08:26
PROVIDERS: ATTEND Ophthalmology
DX: H25.813 Combined forms of age-related cataract, bilateral (principal); I10 Essential (primary) hypertension; K21.9 Gastro-esophageal reflux disease without esophagitis; E66.813 Obesity, class 3; Z68.43 Body mass index [BMI] 50.0-59.9, adult; Z79.899 Other long term (current) drug therapy
CPT/HCPCS: A9270-GY; J2003; J3373; J3490; V2632